=== PATIENT | male | born 1960 | race Caucasian/White ===

== ENCOUNTER 2017-11-12 03:38 | Emergency (ER) | payer OTHER ==
--- NOTE | 2017-11-12 09:47 | RAD ---
2 VIEWS CHEST: Date: 11/12/17 HISTORY: Cough. FINDINGS: PA and lateral views of the chest obtained. The lungs are well aerated. No evidence of active intrath oracic disease seen. No evidence of effusions, pneumonia, or pneumothorax seen. IMPRESSION: Normal 2 views of chest. POS: [facility]
== END 2017-11-12 06:45 | disposition home or self-care (01) ==
LOC: ERS 03:38
DX: J20.9 Acute bronchitis, unspecified (principal); E10.9 Type 1 diabetes mellitus without complications; E03.9 Hypothyroidism, unspecified; K21.9 Gastro-esophageal reflux disease without esophagitis; E78.5 Hyperlipidemia, unspecified; Z79.82 Long term (current) use of aspirin; Z79.899 Other long term (current) drug therapy
CPT/HCPCS: 71020; J7620

== ENCOUNTER 2018-08-03 11:52 | Outpatient (CLI) | payer OTHER | END 2018-08-03 11:53 | disposition home or self-care (01) | LOC: BICMRI 11:52 | PROVIDERS: ATTEND Orthopaedic Surgery | DX: M54.2 Cervicalgia (principal); M47.892 Other spondylosis, cervical region; M48.02 Spinal stenosis, cervical region | CPT/HCPCS: 72141 ==

== ENCOUNTER 2018-12-07 10:58 | Outpatient (CLI) | payer OTHER ==
--- NOTE | 2018-12-07 13:21 | CT ---
CT CERVICAL SPINE WITHOUT CONTRAST: HISTORY: Cervical spondylosis with myelopathy. COMPARISON: None. CORRELATION: MRI cervical spine from 08/03/2018. TECHNIQUE: CT cervical spine is performed without contrast administration. Reformatted images are submitted for interpretation. FINDINGS: No craniocervical dissociation. The lateral masses of C1 and C2, as well as the facets, have appropr iate articulation. Intact odontoid process. Cervical spine vertebral body height is maintained. Th ere is no fracture. There is lack of complete segmentation of C2 on C3. Limited evaluation of the contents of the central spinal canal and neural foramina due to technique. C2-C3: No significant central canal stenosis or neural foraminal narrowing. C3-C4: There appears to be calcification in the posterior aspect of the disk. There is a broad-base d disk osteophyte complex with resultant moderate central canal stenosis. Moderate right foraminal n arrowing due to uncovertebral hypertrophy and right facet hypertrophy. The left neural foramina is p atent. C4-C5: There is calcification at the posterior aspect of the disk. There is a broad-based disk oste ophyte complex with mild to moderate central canal stenosis. There is severe right and moderate left foraminal narrowing due to uncovertebral hypertrophy. C5-C6: There is a broad-based disk bulge that results in at least mild central canal stenosis. Mode rate right and moderate to severe left foraminal narrowing due to uncovertebral hypertrophy and, to a lesser extension, right facet hypertrophy. C6-C7: There appears to be calcification along the posterior margin of the disk. There is a broad-b ased disk bulge with at least mild central canal stenosis. Mild right foraminal narrowing due to unc overtebral hypertrophy. The left neural foramen is patent. C7-T1: There is no high-grade central canal stenosis or high-grade foraminal narrowing. IMPRESSION: Degenerative changes of the cervical spine, as described above. Please refer to recent MRI for rj r evaluation, in terms of the degree of central canal stenosis and foraminal narrowing. POS: [facility]
== END 2018-12-07 10:59 | disposition home or self-care (01) ==
LOC: BICCT 10:58
PROVIDERS: ATTEND Surgery
DX: M47.12 Other spondylosis with myelopathy, cervical region (principal)
CPT/HCPCS: 72125

== ENCOUNTER 2018-12-14 05:31 | Outpatient (CLI) | payer OTHER ==
[2018-12-14 14:23] LABS: Hemoglobin 15.2 g/dL (14.0-18.0); Mean Corpuscular Hemoglobin 31.6 pg (27.0-31.0); Mean Corpuscular Volume 95.7 fL (78.0-98.0); Mean Platelet Volume 8.3 fL (7.4-10.4); Platelet Count 226 thou/uL (130-400); RBC Distribution Width 11.8 % (11.5-14.5); Red Blood Cell (RBC) Count 4.82 mill/uL (4.70-6.10); White Blood Cell (WBC) Count 5.6 thou/uL (4.8-10.8)
[2018-12-14 14:29] LABS: INR-International Normal Ratio 1.1; PTT 28.2 SEC (22.9-36.1); Prothrombin Time 14.4 SEC (12.0-14.7)
[2018-12-14 14:52] LABS: Anion Gap 12 mmol/L (10-20); BUN (Urea Nitrogen) 22 mg/dL (8.4-25.7); Calc. Creatinine Clearance 0 mL/min (70-130); Calcium 9.5 mg/dL (7.8-10.44); Carbon Dioxide 25 mmol/L (22-29); Chloride 105 mmol/L (98-107); Estimated GFR-MDRD 62; Glucose 120 mg/dL (70-105); Sodium 138 mmol/L (136-145)
== END 2018-12-14 05:32 | disposition home or self-care (01) ==
LOC: LABBT 05:31
PROVIDERS: ATTEND Surgery
DX: Z01.818 Encounter for other preprocedural examination (principal); M47.12 Other spondylosis with myelopathy, cervical region; M47.22 Other spondylosis with radiculopathy, cervical region
CPT/HCPCS: 80048; 85027; 85610; 85730; 93005; 93010

== ENCOUNTER 2019-01-10 06:04 | Inpatient (IN) | payer OTHER ==
[2019-01-10] MEDS ORDERED: Fentanyl 250 MCG/5 ML VIAL ONE (06:25)
[2019-01-10] MEDS ORDERED: Sodium Chloride 0.9% 20 ML ONE (06:31)
[2019-01-10] MEDS ORDERED: Bacitracin Zinc Ointment 30 gm TUBE ONE (06:31)
[2019-01-10] MEDS ORDERED: Thrombin 5000 UNITS/5 ML VIAL ONE (06:31)
[2019-01-10] MEDS ORDERED: Midazolam HCl 2 mg/2 ml Vial ONE (07:14)
[2019-01-10] MEDS ORDERED: Insulin Regular 300 UNITS/3 ML VIAL ONE (07:24)
[2019-01-10] MEDS ORDERED: PHENYLEPHRINE-NS 100 MCG/ML 10 ML SYRINGE ONE ×3 (09:48→16:33)
[2019-01-10] MEDS ORDERED: Vecuronium 10 MG VIAL ONE ×2 (11:43→16:33)
[2019-01-10] MEDS ORDERED: Phenylephrine HCL 10 MG/ML VIAL ONE (11:57)
[2019-01-10] MEDS ORDERED: Mag-Al 1200 mg/1200 mg/30 ML UDCUP PO PRN (14:13)
[2019-01-10] MEDS ORDERED: Acetaminophen/Codeine 30-300mg Tablet PO PRN (14:13)
[2019-01-10] MEDS ORDERED: Fleet Enema 133 ML BOT PR PRN (14:13)
[2019-01-10] MEDS ORDERED: Milk Of Magnesia 30 ML UDCUP PO PRN (14:13)
[2019-01-10] MEDS ORDERED: Bisacodyl 10 MG SUPP PR PRN (14:13)
[2019-01-10] MEDS ORDERED: Sodium Chloride 0.9% 1,000 ML IV SCH (14:15)
[2019-01-10] MEDS ORDERED: INSULIN ASPART SQ SCH (14:30)
[2019-01-10] MEDS ORDERED: Fentanyl 100 MCG/2 ML VIAL ONE ×3 (14:43→16:08)
[2019-01-10] MEDS ORDERED: Ondansetron HCl/PF 4 MG/2 ML Vial IVP PRN (15:43)
[2019-01-10] MEDS ORDERED: Promethazine HCl 25 MG/ML VIAL SLOW IVP PRN (15:43)
[2019-01-10] MEDS ORDERED: Promethazine HCl 25 MG/ML VIAL IM PRN (15:43)
[2019-01-10] MEDS ORDERED: PROPOFOL 200 MG/20 ML VIAL ONE (16:33)
[2019-01-10] MEDS ORDERED: Lidocaine 1% PF 5 ML VIAL ONE (16:33)
[2019-01-10] MEDS ORDERED: Rocuronium Bromide 10 MG/ML (10ML VIAL) ONE (16:33)
[2019-01-10] MEDS ORDERED: Glycopyrrolate 0.2 MG/ML 5 ML SYRINGE ONE (16:33)
[2019-01-10] MEDS ORDERED: ePHEDrine 50 MG/ML VIAL ONE (16:33)
[2019-01-10] MEDS ORDERED: Ondansetron PF 4 MG/2 ML Vial ONE (16:33)
[2019-01-10] MEDS: Promethazine HCl 25 MG/ML VIAL IM PRN ×2 (16:41→22:21)
[2019-01-10] MEDS: Morphine 4 MG/ML VIAL SLOW IVP PRN ×4 (17:43→23:10)
[2019-01-10] MEDS: tiZANidine HCl 4 MG TAB PO PRN (17:51)
[2019-01-10] MEDS: CEFAZOLIN 2 GM in Premix Bag 1 BAG IVPB SCH (17:51)
[2019-01-10] MEDS: HYDROcodone/Acetaminophen 7.5/325 mg Tablet PO PRN ×2 (18:03→23:11)
[2019-01-10] MEDS ORDERED: Dextrose 5% in Water 1,000 ML IV PRN (19:30)
[2019-01-10] MEDS ORDERED: Dextrose 50% Abboject 50 ML SYRINGE IVP PRN (19:30)
[2019-01-10 20:10] VITALS: BMI 30.1
[2019-01-10] MEDS: Atorvastatin Calcium 40 MG TAB PO SCH (20:34)
[2019-01-11] MEDS: tiZANidine HCl 4 MG TAB PO PRN (00:57)
[2019-01-11] MEDS: Morphine 4 MG/ML VIAL SLOW IVP PRN ×3 (00:57→21:38)
[2019-01-11] MEDS: CEFAZOLIN 2 GM in Premix Bag 1 BAG IVPB SCH ×3 (00:58→16:53)
[2019-01-11] MEDS: Sodium Chloride 0.9% 1,000 ML IV SCH ×2 (02:13→09:25)
[2019-01-11 02:30] LABS: #Lymphocytes 0.7 thou/uL (1.20-3.40); #Monocytes 1.3 thou/uL (0.11-0.59); #Neutrophils 12.6 thou/uL (1.40-6.50); %Basophils 0.1 % (0.0-1.0); %Eosinophils 0.1 % (0.0-10.0); %Lymphocytes 4.7 % (21.0-51.0); %Monocytes 8.6 % (0.0-10.0); %Neutrophils 86.6 % (42.0-75.0); Hemoglobin 13.8 g/dL (14.0-18.0); Mean Corpuscular HGB CONC 31.8 g/dL (32.0-36.0); Mean Corpuscular Hemoglobin 31.4 pg (27.0-31.0); Mean Corpuscular Volume 98.6 fL (78.0-98.0); Mean Platelet Volume 8.5 fL (7.4-10.4); Platelet Count 237 thou/uL (130-400); RBC Distribution Width 11.9 % (11.5-14.5); Red Blood Cell (RBC) Count 4.39 mill/uL (4.70-6.10); White Blood Cell (WBC) Count 14.6 thou/uL (4.8-10.8)
[2019-01-11] MEDS: Sodium Chloride 0.9% 500 ML IV SCH ×2 (02:45→05:14)
[2019-01-11 02:47] LABS: Anion Gap 21 mmol/L (10-20); BUN (Urea Nitrogen) 25 mg/dL (8.4-25.7); Calc. Creatinine Clearance 67 mL/min (70-130); Carbon Dioxide 19 mmol/L (22-29); Chloride 101 mmol/L (98-107); Estimated GFR-MDRD 45; Glucose 383 mg/dL (70-105); Potassium 4.9 mmol/L (3.5-5.1); Sodium 136 mmol/L (136-145)
[2019-01-11 02:53] LABS: Troponin I Less than 0.010 ng/mL (< 0.028)
[2019-01-11] MEDS: Ondansetron PF 4 MG/2 ML Vial IVP PRN (02:55)
--- NOTE | 2019-01-11 03:05 | HP ---
PRIMARY CARE PHYSICIAN: Dr. Michele Cuadra. CHIEF COMPLAINT: Tachycardia. HISTORY OF PRESENT ILLNESS: Mr. Fernando Cruz is a 58-year-old male with past medical history of type 1 diabetes, hypertension, hypothyroidism, and neck pain who was admitted by Neurosurgery after elective surgery for cervical stenosis. The patient was admitted overnight after the surgery. The hospitalist team was consulted for tachycardia. The patient's heart rate was noted to be in 120s to 130s. The patient's was present at bedside. The patient reports that he never had issues with heart problem or had issues with his elevated heart rate. The patient and deny any history of cardiac problem. The patient reports compliance with his medication. The patient is a type 1 diabetic and takes insulin. The patient reports that his pain is moderately controlled. The patient is on liquid diet. Per , the patient has only been able to drink a little bit of fluid. The patient has been frequently to urinating any and he feels that if he is able to get up, then he can urinate better. The patient also complained of nausea. The patient denies any chest pain or abdominal pain at this point. The patient is on IV fluids per Neurosurgery. Pain control is per Neurosurgery. PAST MEDICAL HISTORY: Hypertension and diabetes type 1. PAST SURGICAL HISTORY: Shoulder surgery and testicle torsion correction. FAMILY HISTORY: Mother had CVA and heart problem. SOCIAL HISTORY: Denies any smoking, alcohol, or illicit drugs. MEDICATIONS: Ramipril, levothyroxine, atorvastatin. REVIEW OF SYSTEMS: A 10-point review of system negative other than mentioned in the HPI. PHYSICAL EXAMINATION: VITAL SIGNS: Temperature 98.1, pulse 116, respiration rate 22, blood pressure 101/60, O2 saturation 96% on 2 L nasal cannula. HEENT: Head is atraumatic head. Ears and nose, no bleeding or discharge is noted. Mouth, no exudate noted. NECK: The patient has a cervical collar and has a drain that is draining clear red liquid. Unable to assess lymphadenopathy. CARDIOVASCULAR: Regular rhythm, tachycardic. No murmur, rubs, or gallops. RESPIRATORY: Clear bilateral. No wheezes appreciated. ABDOMEN: Soft and nontender. Bowel sounds positive. EXTREMITIES: Lower extremities; no edema noted. NEUROLOGICAL: The patient is alert. SKIN: No rashes noted. LABORATORY DATA: WBC 14. hgb 13.8, PLT 237, D-dimer 6, trop neg, BNP WNL Na 136, K 4.9, Cl 101, CO2 19, BUN 21, Cr 1.59 BG 383 Chest x-ray ordered, read pending. ASSESSMENT: 1. Tachycardia. 2. Cervical myelopathy. 3. Cervical stenosis. 4. Hypertension. 5. Hypothyroidism. 6. Diabetes type 1 with hyperglycemia 7. LUIS: likely due to ATN unclear if present on admission. Cr 1.59, Baseline ~ 1.19 8. Leukoyctosis: likely from surgery. Does not appear to be infectious 9. Positive D- dimer PLAN: 1. The patient's tachycardia could be due to dehydration versus insufficient pain control versus combination. Pt does have LUIS. The patient blood pressure is low normal at this point. The patient's IV fluid rate was increased to 125 mL/hour that seemed to have improved heart rates slightly from 130 down to 120s. We will give bolus of normal saline 500 mL over 2 hours. EKG only significant for sinus tachycardia, but no ST-segment elevation noted. Repeat labs during the day. Avoid NSAIDS and nephrotoxic agents. D-dimer positive. VQ Scan order. Will avoid contrast. Hold off abx for now as pt does not have fever. f/u CXR 2. Pain control per Neurosurgery. Need to be cautious as pt's BP in low normal 3. Continue insulin pump. 4. Hypertension. Continue home medications. We will recommend holding home blood pressure medication if blood pressure is less than 120/70. 5. Hypothyroidism. Continue levothyroxine. 6. The patient's medical power of immigration attorney would be his . 7. The patient is a full code. 8. DVT prophylaxis per Neurosurgery. 9. No known allergies to drugs. Thank you for the consult. We will continue to follow along with you. Job ID: [id number] MTDD
[2019-01-11] MEDS: Levothyroxine Sodium 25 MCG TAB PO SCH (05:36)
[2019-01-11] MEDS ORDERED: Levothyroxine Sodium 112 MCG TAB PO SCH (06:00)
[2019-01-11] MEDS ORDERED: HumaLOG 300 UNITS/3 ML VIAL SC PRN ×2 (08:27)
[2019-01-11] MEDS ORDERED: Dextrose 50% Abboject 50 ML SYRINGE SLOW IVP PRN (08:27)
[2019-01-11] MEDS: Ramipril 5 MG CAP PO SCH ×2 (08:28→09:24)
--- NOTE | 2019-01-11 08:45 | RAD ---
CHEST 1 VIEW: HISTORY: Tachycardia. FINDINGS: No comparison. Cardiac silhouette and pulmonary vasculature are unremarkable. Linear markings at th e retrocardiac level extend to the left posterior lung base and are incompletely evaluated on the fro ntal view. Shallow inspiration accentuates pulmonary markings. No evidence of pneumothorax. IMPRESSION: Possible left posterior basilar infiltrate. Please consider upright PA and lateral views of the ches t when patient can undergo that exam. POS: [facility]
[2019-01-11] MEDS: Ketorolac Tromethamine 30 MG/ML VIAL IVP PRN ×2 (09:54→16:51)
[2019-01-11 10:08] LABS: #Lymphocytes 0.9 thou/uL (1.20-3.40); #Monocytes 1.4 thou/uL (0.11-0.59); #Neutrophils 12.1 thou/uL (1.40-6.50); %Basophils 0.1 % (0.0-1.0); %Eosinophils 0.2 % (0.0-10.0); %Monocytes 9.8 % (0.0-10.0); Hemoglobin 12.5 g/dL (14.0-18.0); Mean Corpuscular HGB CONC 33.2 g/dL (32.0-36.0); Mean Corpuscular Hemoglobin 32.1 pg (27.0-31.0); Mean Corpuscular Volume 96.8 fL (78.0-98.0); Mean Platelet Volume 8.1 fL (7.4-10.4); Platelet Count 234 thou/uL (130-400); RBC Distribution Width 11.8 % (11.5-14.5); Red Blood Cell (RBC) Count 3.88 mill/uL (4.70-6.10); White Blood Cell (WBC) Count 14.4 thou/uL (4.8-10.8)
--- NOTE | 2019-01-11 10:16 | PDOC.PN ---
- Subjective Encounter Start Date: 01/11/19 Encounter Start Time: 08:15 -: old records requested/rev pt has dry cough, his neck pain is controlled, he has tachycardia, no chest pain , no dizziness, his insulin pump was on hold this morning, his blood sugar are high and he has polyuria and polydipsia, no fever - Objective Resuscitation Status - Order Detail: 01/11/19 08:26 Resuscitation Status Routine Resuscitation Status: FULL: Full Resuscitation MAR Reviewed: Yes Vital Signs & Weight: Vital Signs (12 hours) Temp Pulse Resp BP BP BP Pulse Ox 01/11/19 09:24 104/55 L 01/11/19 07:20 98.9 F 119 H 20 104/55 L 92 L 01/11/19 04:20 98.8 F 121 H 20 93/54 L 95 01/11/19 00:24 98.9 F 120 H 20 101/60 95 Weight Weight 210 lb I&O: 01/10/19 01/11/19 01/12/19 06:59 06:59 06:59 Intake Total 650 Output Total 1100 35 Balance -450 -35 Result Diagrams: 01/11/19 09:44 01/11/19 01:45 Additional Labs: Accuchecks 01/11/19 01/11/19 01/11/19 08:52 06:11 00:25 POC Glucose 377 H 365 H 297 H 01/10/19 01/10/19 01/10/19 17:31 14:36 13:18 POC Glucose 245 H 121 H 89 01/10/19 01/10/19 01/10/19 12:37 11:27 10:15 POC Glucose 108 185 H 283 H 01/10/19 01/10/19 09:28 08:40 POC Glucose 296 H 304 H Radiology Reviewed by me: Yes (chest xray normal) EKG Reviewed by me: Yes (sinus tachycardia) Phys Exam - Physical Examination Constitutional: NAD HEENT: PERRLA, moist MMs, sclera anicteric, oral pharynx no lesions Neck: no JVD, supple cervical collar+, drain in place Respiratory: no wheezing, no rales, no rhonchi Cardiovascular: RRR, no significant murmur, no rub tachycardia Gastrointestinal: soft, non-tender, no distention, positive bowel sounds Musculoskeletal: no edema, pulses present SCD+ Neurological: non-focal, normal sensation, moves all 4 limbs Lymphatic: no nodes Psychiatric: normal affect, A&O x 3 Skin: no rash, normal turgor Dx/Plan (1) Acute kidney injury Code(s): N17.9 - ACUTE KIDNEY FAILURE, UNSPECIFIED Status: Acute Comment: due to prerenal (2) Elevated d-dimer Code(s): R79.89 - OTHER SPECIFIED ABNORMAL FINDINGS OF BLOOD CHEMISTRY Status : Acute Comment: nonspecific likely due to post operative (3) Leucocytosis Code(s): D72.829 - ELEVATED WHITE BLOOD CELL COUNT, UNSPECIFIED Status: Acute Comment: due to stress response after surgery, doubt any infection (4) Sinus tachycardia Code(s): R00.0 - TACHYCARDIA, UNSPECIFIED Status: Acute Comment: due to pain , volume deplation and rule out DKA (5) Cervical myelopathy with cervical radiculopathy Code(s): M47.12 - OTHER SPONDYLOSIS WITH MYELOPATHY, CERVICAL REGION Status: Chronic (6) Cervical stenosis of spinal canal Code(s): M48.02 - SPINAL STENOSIS, CERVICAL REGION Status: Chronic (7) Diabetes type 2, controlled Code(s): E11.9 - TYPE 2 DIABETES MELLITUS WITHOUT COMPLICATIONS Status: Chronic Comment: currently not well controlled due to off insulin pump, will resume that and will necessary blood test like ketons, lactic acid, and repeat labs today (8) Dyslipidemia Code(s): E78.5 - HYPERLIPIDEMIA, UNSPECIFIED Status: Chronic (9) GERD (gastroesophageal reflux disease) Code(s): K21.9 - GASTRO-ESOPHAGEAL REFLUX DISEASE WITHOUT ESOPHAGITIS Status: Chronic (10) Hypertension Code(s): I10 - ESSENTIAL (PRIMARY) HYPERTENSION Status: Chronic Comment: will hold BP meds for SBP <120 (11) Hypothyroidism Code(s): E03.9 - HYPOTHYROIDISM, UNSPECIFIED Status: Chronic (12) Obesity (BMI 30.0-34.9) Code(s): E66.9 - OBESITY, UNSPECIFIED Status: Chronic - Plan cont current plan of care, plan discussed w/ family, PT/OT * continue IVF * resume insulin pumpl * monitor blood sugar frequently * if does not improve and evidence of DKA, will consider insulin drip * medication reviewed as below * symptomatic treatment * post operative care as per surgeon * discussed with . Review of Systems - Review of Systems Respiratory: Cough, Dry. negative: Shortness of Breath, Hemoptysis, SOB with Excertion, Pleuritic Pain, Sputum, Wheezing Cardiovascular: negative: chest pain, palpitations, orthopnea, paroxysmal nocturnal dyspnea, edema, light headedness, other Gastrointestinal: negative: Nausea, Vomiting, Abdominal Pain, Diarrhea, Constipation, Melena, Hematochezia, Other Genitourinary: negative: Dysuria, Frequency, Incontinence, Hematuria, Retention , Other Musculoskeletal: Neck Pain. negative: Shoulder Pain, Arm Pain, Back Pain, Hand Pain, Leg Pain, Foot Pain, Other - Medications/Allergies Allergies/Adverse Reactions: Allergies Allergy/AdvReac Type Severity Reaction Status Date / Time No Known Allergies Allergy Verified 12/14/18 13:03 Medications: Current Medications Acetaminophen (Tylenol) 650 mg PO Q4H PRN PRN Reason: BORDEN/Fever Or Mild Pain (1-3) Acetaminophen/Codeine Phosphate (Tylenol #3) 1 tab PO Q3H PRN PRN Reason: Mild Pain (1-3) Hydrocodone Bitart/Acetaminophen (Escanaba 7.5/325) 1 tab PO Q4H PRN PRN Reason: Moderate Pain (4-6) Last Admin: 01/10/19 23:11 Dose: 1 tab Al Hydroxide/Mg Hydroxide (Maalox) 30 ml PO Q4H PRN PRN Reason: Indigestion Atorvastatin Calcium (Lipitor) 80 mg PO HS [facility] Last Admin: 01/10/19 20:34 Dose: 80 mg Bisacodyl (Dulcolax) 10 mg CO Q12H PRN PRN Reason: Constipation Dextrose/Water (Dextrose 50%) 25 gm SLOW IVP PRN PRN PRN Reason: Hypoglycemia Glucagon (Glucagon) 1 mg IM PRN PRN PRN Reason: HYPOGLYCEMIA PROTOCOL Cefazolin Sodium/Dextrose 2 gm (/ Device) 50 mls @ 100 mls/hr IVPB 0800,1600, 2359 [facility] Last Admin: 01/11/19 08:24 Dose: 50 mls Dextrose/Water (D5w) 1,000 mls @ 0 mls/hr IV INF PRN PRN Reason: HYPOGLYCEMIA PROTOCOL Sodium Chloride (Normal Saline 0.9%) 1,000 mls @ 125 mls/hr IV .Q8H [facility] Last Admin: 01/11/19 09:25 Dose: Not Given Insulin Human Lispro (Humalog) 0 units SC .MODERATE SLIDING SC PRN PRN Reason: Moderate Correctional Scale Insulin Human Lispro (Humalog) 0 units SC .BEDTIME SLIDING SC PRN PRN Reason: Bedtime Correctional Scale Ketorolac Tromethamine (Toradol) 30 mg IVP Q6H PRN PRN Reason: Pain Last Admin: 01/11/19 09:54 Dose: 30 mg Levothyroxine Sodium (Synthroid) 25 mcg PO 0600 [facility] Last Admin: 01/11/19 05:36 Dose: 25 mcg Magnesium Hydroxide (Milk Of Magnesium) 30 ml PO Q12H PRN PRN Reason: Constipation Last Admin: 01/11/19 09:57 Dose: 30 ml Morphine Sulfate (Morphine) 4 mg SLOW IVP Q1H PRN PRN Reason: Severe Pain (7-10) Last Admin: 01/11/19 02:55 Dose: 4 mg Ondansetron HCl (Zofran) 4 mg IVP Q6H PRN PRN Reason: Nausea/Vomiting Last Admin: 01/11/19 02:55 Dose: 4 mg Pantoprazole Sodium (Protonix) 40 mg PO DAILY [facility] Last Admin: 01/11/19 08:25 Dose: 40 mg Promethazine HCl (Phenergan) 12.5 mg IM Q4H PRN PRN Reason: Nausea/Vomiting Last Admin: 01/10/19 22:21 Dose: 12.5 mg Ramipril (Altace) 5 mg PO DAILY [facility] Last Admin: 01/11/19 09:24 Dose: Not Given Sodium Biphosphate/Sodium Phosphate (Fleet Enema) 133 ml CO ONE PRN PRN Reason: Constipation Stop: 01/11/19 14:14 Sodium Chloride (Flush - Normal Saline) 10 ml IVF PRN PRN PRN Reason: Saline Flush Tizanidine HCl (Zanaflex) 4 mg PO Q6H PRN PRN Reason: Muscle Spasm Last Admin: 01/11/19 00:57 Dose: 4 mg Tramadol HCl (Ultram) 50 mg PO Q6H PRN PRN Reason: Mild Pain (1-3)
--- NOTE | 2019-01-11 10:18 | PRG ---
DATE OF SERVICE: 01/11/2019 Mr. Cruz is postoperative day 1 from anterior C3-C7 diskectomy and fusion and posterior C3-C7 laminectomy and screw-tyler fixation. Obviously, pain control has been an issue overnight and we have worked in this regard and have consulted Pain Management this morning to assist. He has had blood pressure in the 90/70 range at times. Again, I suspect related to narcotic sensitivity. We will add Toradol to his regimen as well. He has also had urinary retention and difficulty fully emptying his bladder and he would like to try and mobilize this morning to try and stand to urinate. Obviously, I think this is related to narcotics, but also related to prostatic hypertrophy. He does have type 1 diabetes with an insulin pump and has had sugars in the 340 range this morning. Obviously, one concern I would have is diabetic ketoacidosis and we will ask our medical colleagues to assist in this regard. A V/Q scan has been ordered and I think this would be of low yield and frankly would be a study that would result in increased pain. Obviously, we can always pursue evaluation for pulmonary embolism, but I do not think it is necessary at this point. We will consult physical therapy and inpatient rehab and finally should he have more difficulty with voiding, we will work towards placement of indwelling catheter. Job ID: [id number]
--- NOTE | 2019-01-11 10:22 | OP ---
DATE OF PROCEDURE: 01/10/2019 OPERATING ROOM: OR 12. WOUND CLASSIFICATION: Type 1 wound. RN TELEHEALTH: Khadar Mccabe PA-C. PRE-PROCEDURE DIAGNOSIS: Multilevel cervical stenosis with myelopathy and radiculopathy. POSTPROCEDURE DIAGNOSIS: Multilevel cervical stenosis with myelopathy and radiculopathy. PROCEDURES PERFORMED: 1. Anterior C3-C4, C4-C5, C5-C6, C6-C7 diskectomies with decompression of spinal cord nerve roots and temple of normal anatomic alignment. 2. Arthrodesis C3-C4, C4-C5, C5-C6, C6-C7 with spacer packed with graft for arthrodesis. 3. Anterior cervical plate and screw fixation, C3, C4, C5, C6, and C7. 4. Use of operative microscope for microdissection. 5. Anterior fusion C3, C4, C5, C6, and C7. 6. Cervical laminectomy, C3-C4, C4-C5, C5-C6, C6-C7. 7. Posterior screw tyler fixation, C3, C4, C5, C6, and C7. 8. Posterior lateral arthrodesis, C3, C4, C5, C6, and C7 for fusion with use of local bone autograft obtained from the same incision allograft. DESCRIPTION OF PROCEDURE: After informed consent was obtained from the patient, the patient was brought to the OR. Proper patient, pause, and identification were carried out. He was placed under excellent endotracheal anesthesia and positioned supine on the OR table and cervical spine in neutral position. Right anterior oblique harris was drawn out and level of approach from C3-C7. This region was sterilely cleansed, prepared, and draped. Proper patient, pause, and identification were carried out. The wound was then opened with a combination of sharp, monopolar, and blunt dissection with C3-C7 segments were exposed after a procession lateral to the larynx, pharynx, and tracheoesophageal bundle and medial to the right carotid sheath. We then turned our attention to exposure of the anterior C3, C4, C5, C6, and C7 segments and disk spaces. Retractors were placed. Distraction then occurred and the microscope was brought and distraction at C3-C4 was performed and diskectomy at C3-C4 was performed. We then prepared the endplates of interbody spacer of appropriate dimension was packed with graft and placed for arthrodesis. We then distracted C4-C5, C5-C6, and C6-C7 and repeated the process at each of those segments with diskectomies and at each of those segments, preparation of the endplates, and placement of interbody spacers at the C4-C5, C5-C6, and C6-C7 segments. We were satisfied with our lordotic alignment at that point. Microscope was removed and anterior cervical plate and screw fixation from C3-C7 then occurred with final tightening. We then copiously irrigated the wound and the wound was closed in anatomic layers over drain on maximizing hemostasis. The patient was then placed in the [facility] and positioned prone again in cervical spine in neutral position. The C3-C7 posterior incision was drawn out and this area was sterilely cleansed, prepared, and draped. Proper patient, pause, and identification were carried out. The wound was then opened with a combination of sharp, monopolar, and blunt dissection, and C3-C7 dorsal spines and lamina were exposed. We then placed screws in lateral masses at C3, C4, C5, C6, C7 bilaterally. Rods were placed and final tightening occurred. We had excellent lordotic alignment and had decompressive laminectomy from C3-C7 was also performed. We maximized hemostasis throughout. The wound was copiously irrigated and closed in anatomic layers following decortication of the posterior lateral mass and placement of autograft obtained from the same incision of allograft for arthrodesis. Again, we were satisfied with our construct and physiologic alignment with both gross and fluoroscopic evaluation and the patient then emerged from anesthesia following closure of the posterior wall. Job ID: [id number]
[2019-01-11 10:27] LABS: Lactic Acid 2.2 mmol/L (0.5-2.2)
[2019-01-11 10:29] LABS: Anion Gap 18 mmol/L (10-20); BUN (Urea Nitrogen) 35 mg/dL (8.4-25.7); Calc. Creatinine Clearance 58 mL/min (70-130); Calcium 8.4 mg/dL (7.8-10.44); Carbon Dioxide 19 mmol/L (22-29); Chloride 100 mmol/L (98-107); Estimated GFR-MDRD 38; Glucose 420 mg/dL (70-105); Magnesium 1.6 mg/dL (1.6-2.6); Phosphorus 4.1 mg/dL (2.3-4.7); Potassium 4.5 mmol/L (3.5-5.1); Sodium 132 mmol/L (136-145)
[2019-01-11] MEDS ORDERED: HUMULIN R 100 UNITS in Sodium Chloride 0.9% 100 ML IVPB SCH (11:32)
[2019-01-11] MEDS ORDERED: Dextrose 5 %-0.45 % NaCl 1,000 ML IV PRN (11:32)
[2019-01-11] MEDS ORDERED: Sodium Chloride 0.9% 1,000 ML IV PRN ×4 (11:32)
[2019-01-11] MEDS ORDERED: NS 0.9% w/ 20 MEQ KCL 1,000 ML IV PRN ×2 (11:32)
[2019-01-11] MEDS ORDERED: CCU Electrolyte Replacement 1 EACH IVPB ONE (11:32)
--- NOTE | 2019-01-11 11:45 | CON ---
DATE OF CONSULTATION: 01/11/2019 REASON FOR CONSULTATION: Diabetic ketoacidosis. HISTORY OF PRESENT ILLNESS: The patient is a 58-year-old male, who was admitted to the hospital yesterday for elective cervical neck operation for stenosis. Today, he has extremely elevated blood sugars and has a positive beta hydroxybutyrate. He is having polyuria and polydipsia at this time. PAST MEDICAL HISTORY: 1. Type 1 diabetes mellitus for many years. 2. Hypertension. 3. Hypothyroidism. PAST SURGICAL HISTORY: 1. Shoulder surgery. 2. Testicular torsion correction. FAMILY MEDICAL HISTORY: Remarkable for stroke and coronary artery disease. SOCIAL HISTORY: Nonsmoker. Does not consume alcohol. 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 MEDICATIONS: Prior to admission; 1. Ramipril. 2. Levothyroxine. 3. Atorvastatin. 4. Insulin pump. REVIEW OF SYSTEMS: Remarkable for polydipsia, polyphagia, and polyuria. PHYSICAL EXAMINATION: VITAL SIGNS: Temperature 98.9, pulse 119, blood pressure 104/55, and O2 saturation 90%. GENERAL: The patient is currently lying in bed, somewhat tachypneic. HEENT: Pupils are reactive. Sclerae anicteric. Oropharynx clear. NECK: Neck brace in place. LUNGS: Clear anteriorly and posteriorly. CARDIOVASCULAR: S1 and S2 slightly tachycardic. ABDOMEN: Soft, nontender, and nondistended. EXTREMITIES: No clubbing, cyanosis, or edema. LABORATORY DATA: Beta hydroxybutyrate is 5.1. White blood cell count 14.4, hematocrit 37.5, and platelet count 234. Sodium 132, potassium 4.5, chloride 100, CO2 of 19, BUN 35, creatinine 1.8, glucose 420, and his anion gap is 18. His D-dimer 6.96. ASSESSMENT: Diabetic ketoacidosis from being off his insulin pump. PLAN: 1. Move to [facility] to give fluids, start IV insulin, and to get his blood sugars are under better control. This is particularly important in the perioperative period. 2. Discussed with the patient and his at bedside. Job ID: [id number]
[2019-01-11] MEDS ORDERED: Magnesium 2 GM/NS 0.9% 100 ML 2 GM in Premix Bag 1 BAG IVPB PRN (11:55)
[2019-01-11] MEDS ORDERED: Potassium Phosphate 15 MMOL in Sodium Chloride 0.9% 250 ML 250 ML IV PRN (11:55)
[2019-01-11] MEDS ORDERED: Potassium Phosphate 9 MMOL in Sodium Chloride 0.9% 100 ML IVPB PRN (11:55)
[2019-01-11] MEDS ORDERED: Potassium Chloride 20 MEQ TAB PO PRN (11:55)
[2019-01-11] MEDS ORDERED: Potassium Chloride 40 MEQ in Sodium Chloride 0.9% 250 ML 250 ML IVPB PRN (11:55)
[2019-01-11] MEDS ORDERED: CCU ELECTROLYTE REPLACEMENT PROTOCOL FS PRN (11:55)
[2019-01-11] MEDS ORDERED: Magnesium Oxide 400 MG TAB PO PRN ×2 (11:55)
[2019-01-11] MEDS ORDERED: Potassium Chloride 40 MEQ in Premix Bag 1 BAG IVPB PRN (11:55)
[2019-01-11] MEDS ORDERED: Potassium Phosphate 12 MMOL in Sodium Chloride 0.9% 250 ML 250 ML IV PRN (11:55)
[2019-01-11 15:04] LABS: Anion Gap 14 mmol/L (10-20); BUN (Urea Nitrogen) 39 mg/dL (8.4-25.7); Calc. Creatinine Clearance 61 mL/min (70-130); Calcium 8.4 mg/dL (7.8-10.44); Carbon Dioxide 22 mmol/L (22-29); Chloride 102 mmol/L (98-107); Estimated GFR-MDRD 40; Glucose 312 mg/dL (70-105); Sodium 134 mmol/L (136-145)
[2019-01-11] MEDS ORDERED: Lidocaine 1% (PF) 30 ML VIAL ONE (15:19)
--- NOTE | 2019-01-11 17:00 | EKG ---
Test Reason : TACHYCARDIA Blood Pressure : / mmHG Vent. Rate : 122 BPM Atrial Rate : 122 BPM P-R Int : 122 ms QRS Dur : 084 ms QT Int : 326 ms P-R-T Axes : 049 041 042 degrees QTc Int : 464 ms Sinus tachycardia Nonspecific ST abnormality Abnormal ECG When compared with ECG of 14-DEC-2018 13:46, (Unconfirmed) Vent. rate has increased BY 52 BPM Confirmed by VALORIE BERTRAND ([id number]) on 01/11/2019 5:00:08 PM Referred By: Jorge RODRIGUES Confirmed By:VALORIE BERTRAND
[2019-01-11 19:48] LABS: Anion Gap 10 mmol/L (10-20); BUN (Urea Nitrogen) 34 mg/dL (8.4-25.7); Calc. Creatinine Clearance 81 mL/min (70-130); Calcium 8.2 mg/dL (7.8-10.44); Carbon Dioxide 25 mmol/L (22-29); Chloride 107 mmol/L (98-107); Estimated GFR-MDRD 56; Glucose 107 mg/dL (70-105); Potassium 4.5 mmol/L (3.5-5.1); Sodium 137 mmol/L (136-145)
[2019-01-11] MEDS: Bacitracin Zinc 1 Packet TOP SCH (20:40)
[2019-01-11] MEDS: Atorvastatin Calcium 40 MG TAB PO SCH (20:42)
[2019-01-11] MEDS: D5 1/2 NS w/20 mEq KCL 1,000 ML IV PRN (21:35)
--- NOTE | 2019-01-11 22:07 | CON ---
DATE OF CONSULTATION: 01/11/2019 CONSULTING PHYSICIAN: Aria Blue MD CONSULTED PHYSICIAN: Atilio Bartholomew MD REASON FOR CONSULTATION: Urinary retention and inability to pass catheter. HISTORY OF PRESENT ILLNESS: Mr. Cruz is a 58-year-old white male, who was admitted to the hospital for elective cervical neck surgery for spinal stenosis. Postoperatively, he has had a very high blood sugars and has had some problems in maintaining his blood sugars. On the telemetry floor in the ICU being monitored, but it was noted that he was having difficulty urinating. It is not clear whether or not he had a catheter at the time of his surgery, but postoperatively, he did not have a catheter and was having difficulty voiding. He was only able to void in 50 mL increments while lying supine. When they stood him up, he was able to void approximately 300 mL, but had the postvoid residual of almost 450 to 500 mL. He is also being aggressively hydrated due to a DKA protocol due to significantly elevated blood sugars due to his incomplete emptying and his high risk for urinary retention and urinary tract infections. Given his high blood sugars, we have elected to go ahead and treat him. He reports that at home, he normally does not have a significant amount of difficulty urinating. However, he does have a deviated urinary stream. The nursing staff stated they attempted to place a catheter, but his opening was too small and they were not able to pass a 16 or 14-Turkish catheter. Therefore, I have been called for further assistance. He has no history of urinary tract infections or hematuria or previous urologic surgeries. HOME MEDICATIONS: 1. Ramipril. 2. Levothyroxine. 3. Atorvastatin. 4. Insulin pump. ALLERGIES: NONE. PAST MEDICAL HISTORY: 1. Type 1 diabetes. 2. Hypertension. 3. Hypothyroidism. 4. Cervical neck stenosis. PAST SURGICAL HISTORY: 1. Shoulder surgery. 2. Correction of testicular torsion many years ago. 3. Recent cervical spine surgery. FAMILY HISTORY: Significant for stroke and coronary artery disease. SOCIAL HISTORY: The patient does not smoke. He does not drink alcohol. He denies illicit drug use. He is a retired principal at a school. REVIEW OF SYSTEMS: A 12-point review of systems was reviewed and unremarkable other than the patient having excessive thirst and strong need to urinate without being able to do so. He is also complaining of some neck pain postoperatively. Remainder of review of systems was reviewed and otherwise negative. PHYSICAL EXAMINATION: VITAL SIGNS: Temperature 98.4, pulse 98, respirations 20, blood pressure 100/58, and saturations 92% on room air. GENERAL: No apparent distress, communicating, and alert. CARDIOVASCULAR: Regular rate and rhythm. Normal S1 and S2. Symmetric pulses. HEENT: Normocephalic, atraumatic. Sclerae are nonicteric. Pupils are symmetric and round. Trachea midline. Moist mucous membranes. CHEST: No increased work of breathing. Symmetric expansion. LUNGS: Clear anteriorly. ABDOMEN: Soft, nontender, and nondistended. Positive bowel sounds. No organomegaly. Mild discomfort in the suprapubic area. GENITOURINARY: The patient is circumcised. His penis is without lesions or irritation. No evidence of infection. Testicles are bilaterally descended. No scrotal edema or hydroceles or hernias noted. The meatus is significantly narrowed probably about the size of 6 to 8 -Turkish catheter. EXTREMITIES: No clubbing, cyanosis, or edema. MUSCULOSKELETAL: No joint deformities or joint erythema noted. The patient has full range of motion of his upper and lower extremities. NEUROLOGIC: Cranial nerves II through XII are grossly intact. There are no obvious focal motor or sensory deficits identified, although a full neuro exam was not performed. PSYCHIATRIC: Alert and oriented x3. Appropriate mood and affect. LABORATORY EVALUATION: The full set of labs in the [facility] system, which I have reviewed. Of note, the patient's white count is 14.4 with hemoglobin of 12.5. Creatinine is currently 1.73 with a blood sugar of 307. DESCRIPTION OF PROCEDURE: After discussing with the patient about a meatoplasty with risks and benefits, the patient had agreed to proceed forward with a meatoplasty. He was left in the supine position and the procedure was done at bedside. He was prepped and draped in the usual sterile fashion. Anesthesia was achieved with 1% lidocaine plain injected just below the urethral meatus. Once adequate numbing had taken place, hemostats were used to crush the tissues ventrally from the meatus. The iris scissor was used to divide the skin along the crushed line to widely open the meatus. Sutures were then placed using a 4-0 chromic interrupted fashion at 6 o'clock at the lateral aspects and intervening locations in the V-type cut that was made below the meatus. Upon completion, the meatus was widely patent. Bacitracin ointment was applied. The patient did not feel anything other than the original needlestick and tolerated the procedure well. COMPLICATIONS: None. ESTIMATED BLOOD LOSS: Minimal. RETAINED TUBES AND DRAINS: A 16-Turkish Acosta catheter was placed by me with ease into the bladder with return of approximately 500 to 600 mL of clear yellow urine. SPECIMENS: None. ASSESSMENT AND PLAN: A 58-year-old white male with type 1 diabetes, status post meatoplasty at bedside with urinary retention, which is likely secondary to recent cervical spine surgery and high blood sugars with likely some neuropathic effects. I do expect him to regain his ability to urinate once his blood sugars are better. He has recovered further from his surgery and anesthesia as well as decreasing his narcotic pain requirements. At this point, he should be able to void on his own. We will keep the catheter in for right now and he needs bacitracin applied to the tip of his penis twice a day. We will keep the bacitracin going for 7 days, but his catheter can be removed when he is ready for discharge. We will do a void trial and if he is able to void to completion. At that time, we will keep the catheter out. If he is not able to void, the catheter can be replaced. He can be discharged with a catheter and follow up with me on an outpatient basis for repeat void trial. SUMMARY OF RECOMMENDATIONS: 1. Acosta catheter until discharge. We will do void trial prior to discharge. 2. Bacitracin ointment to the tip of penis twice a day. 3. The patient will follow up with me regardless for a postop check for void trial if necessary. Job ID: [id number]
[2019-01-11 22:18] LABS: Anion Gap 11 mmol/L (10-20); BUN (Urea Nitrogen) 33 mg/dL (8.4-25.7); Calc. Creatinine Clearance 86 mL/min (70-130); Carbon Dioxide 23 mmol/L (22-29); Chloride 108 mmol/L (98-107); Estimated GFR-MDRD 60; Glucose 128 mg/dL (70-105); Potassium 4.5 mmol/L (3.5-5.1); Sodium 137 mmol/L (136-145)
[2019-01-12] MEDS: CEFAZOLIN 2 GM in Premix Bag 1 BAG IVPB SCH ×3 (00:10→16:41)
[2019-01-12] MEDS: D5 1/2 NS w/20 mEq KCL 1,000 ML IV PRN ×3 (01:27→08:45)
[2019-01-12] MEDS: Ketorolac Tromethamine 30 MG/ML VIAL IVP PRN ×2 (03:39→20:11)
[2019-01-12 05:30] LABS: Anion Gap 9 mmol/L (10-20); BUN (Urea Nitrogen) 27 mg/dL (8.4-25.7); Calc. Creatinine Clearance 93 mL/min (70-130); Calcium 8.2 mg/dL (7.8-10.44); Carbon Dioxide 22 mmol/L (22-29); Chloride 108 mmol/L (98-107); Estimated GFR-MDRD 66; Glucose 285 mg/dL (70-105); Potassium 4.3 mmol/L (3.5-5.1); Sodium 135 mmol/L (136-145)
[2019-01-12] MEDS: Levothyroxine Sodium 25 MCG TAB PO SCH (07:16)
[2019-01-12] MEDS ORDERED: Chloraseptic Spray 180 ml Bottle PO PRN (07:49)
[2019-01-12] MEDS: HYDROcodone/Acetaminophen 10/325 mg Tablet PO PRN ×2 (08:29→16:22)
--- NOTE | 2019-01-12 11:05 | PRG ---
DATE OF SERVICE: 01/12/2019 SUBJECTIVE: The patient feels better today. He had no acute complaints. OBJECTIVE: VITAL SIGNS: On exam, his temperature is not recorded, pulse 99, blood pressure 126/96, and O2 saturation 99%. Intake for 24 hours 6150, output 2790. HEENT: Unremarkable. NECK: C-collar in place. LUNGS: Clear. CARDIAC: S1 and S2, regular. ABDOMEN: Soft. EXTREMITIES: No edema. LABORATORY DATA: His last blood sugar 148. Sodium 135, potassium 4.3, chloride 108, CO2 of 22, BUN 27, and creatinine 1.1. Beta hydroxybutyrate 0.15. ASSESSMENT: 1. Mild diabetic ketoacidosis, which is now resolved. 2. 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 Bartholomew yesterday. PLAN: 1. Restart insulin pump and restart Accu-Cheks per his routine at home. The patient boluses his insulin per the amount of carbs in his diet and he is well educated on that. 2. Keep in IMCU for the time being and probably go out to the floor tomorrow. 3. Begin ambulating. 4. Consider discontinuing antibiotics if okay with Neurosurgery. Job ID: [id number]
--- NOTE | 2019-01-12 11:08 | PDOC.PN ---
- Subjective Encounter Start Date: 01/12/19 Encounter Start Time: 11:06 Patient seen and examined. No new complaints. No overnight events - Objective Resuscitation Status - Order Detail: 01/11/19 08:26 Resuscitation Status Routine Resuscitation Status: FULL: Full Resuscitation MAR Reviewed: Yes Vital Signs & Weight: Vital Signs (12 hours) Temp 01/12/19 03:49 99.0 F 01/11/19 23:38 99.8 F H Weight Weight 210 lb Most Recent Monitor Data Heart Rate from ECG 88 NIBP 125/82 NIBP BP-Mean 96 Respiration from ECG 20 SpO2 95 I&O: 01/11/19 01/12/19 01/13/19 06:59 06:59 06:59 Intake Total 650 6150.2 Output Total 1100 2790 Balance -450 3360.2 Result Diagrams: 01/11/19 09:44 01/12/19 04:24 Additional Labs: Accuchecks 01/12/19 01/12/19 01/12/19 10:02 09:29 08:10 POC Glucose 148 H 159 H 139 H 01/12/19 01/12/19 01/12/19 07:03 06:02 05:03 POC Glucose 209 H 229 H 255 H 01/12/19 01/12/19 01/12/19 04:08 03:03 02:06 POC Glucose 287 H 259 H 246 H 01/12/19 01/12/19 01/11/19 01:06 00:11 23:04 POC Glucose 235 H 227 H 196 H 01/11/19 01/11/19 01/11/19 22:01 21:06 20:03 POC Glucose 140 H 123 H 116 H 01/11/19 01/11/19 01/11/19 19:38 19:14 18:13 POC Glucose 116 H 101 100 01/11/19 01/11/19 01/11/19 17:21 16:07 14:58 POC Glucose 123 H 190 H 307 H 01/11/19 01/11/19 14:32 13:12 POC Glucose 312 H 318 H EKG Reviewed by me: Yes (nsr) Phys Exam - Physical Examination Constitutional: NAD HEENT: PERRLA, moist MMs, sclera anicteric Neck: no JVD, supple cervical collar+ Respiratory: no wheezing, no rales, no rhonchi Cardiovascular: RRR, no significant murmur, no rub Gastrointestinal: soft, non-tender, no distention, positive bowel sounds Musculoskeletal: no edema, pulses present Neurological: non-focal, normal sensation, moves all 4 limbs Lymphatic: no nodes Psychiatric: normal affect, A&O x 3 Skin: no rash, normal turgor Dx/Plan (1) DKA (diabetic ketoacidoses) Code(s): E13.10 - OTH DIABETES MELLITUS WITH KETOACIDOSIS WITHOUT COMA Status : Acute Qualifiers: Diabetes mellitus type: type 1 (2) Acute kidney injury Code(s): N17.9 - ACUTE KIDNEY FAILURE, UNSPECIFIED Status: Resolved Comment : due to prerenal (3) Elevated d-dimer Code(s): R79.89 - OTHER SPECIFIED ABNORMAL FINDINGS OF BLOOD CHEMISTRY Status : Acute Comment: nonspecific likely due to post operative (4) Leucocytosis Code(s): D72.829 - ELEVATED WHITE BLOOD CELL COUNT, UNSPECIFIED Status: Acute Comment: due to stress response after surgery, doubt any infection (5) Sinus tachycardia Code(s): R00.0 - TACHYCARDIA, UNSPECIFIED Status: Acute Comment: due to pain , volume deplation and rule out DKA (6) Cervical myelopathy with cervical radiculopathy Code(s): M47.12 - OTHER SPONDYLOSIS WITH MYELOPATHY, CERVICAL REGION Status: Chronic (7) Cervical stenosis of spinal canal Code(s): M48.02 - SPINAL STENOSIS, CERVICAL REGION Status: Chronic (8) Diabetes type 2, controlled Code(s): E11.9 - TYPE 2 DIABETES MELLITUS WITHOUT COMPLICATIONS Status: Chronic Comment: currently not well controlled due to off insulin pump, will resume that and will necessary blood test like ketons, lactic acid, and repeat labs today (9) Dyslipidemia Code(s): E78.5 - HYPERLIPIDEMIA, UNSPECIFIED Status: Chronic (10) GERD (gastroesophageal reflux disease) Code(s): K21.9 - GASTRO-ESOPHAGEAL REFLUX DISEASE WITHOUT ESOPHAGITIS Status: Chronic (11) Hypertension Code(s): I10 - ESSENTIAL (PRIMARY) HYPERTENSION Status: Chronic Comment: will hold BP meds for SBP <120 (12) Hypothyroidism Code(s): E03.9 - HYPOTHYROIDISM, UNSPECIFIED Status: Chronic (13) Obesity (BMI 30.0-34.9) Code(s): E66.9 - OBESITY, UNSPECIFIED Status: Chronic (14) Acute urinary retention Code(s): R33.8 - OTHER RETENTION OF URINE Status: Acute - Plan cont current plan of care * urology and pulmonary recommendation noted * voiding trial before discharge * medication reviewed as below * symptomatic treatment. Review of Systems - Review of Systems ENT: negative: Ear Pain, Ear Discharge, Nose Pain, Nose Discharge, Nose Congestion, Mouth Pain, Mouth Swelling, Throat Pain, Throat Swelling, Other Respiratory: negative: Cough, Dry, Shortness of Breath, Hemoptysis, SOB with Excertion, Pleuritic Pain, Sputum, Wheezing Cardiovascular: negative: chest pain, palpitations, orthopnea, paroxysmal nocturnal dyspnea, edema, light headedness, other Gastrointestinal: negative: Nausea, Vomiting, Abdominal Pain, Diarrhea, Constipation, Melena, Hematochezia, Other Genitourinary: negative: Dysuria, Frequency, Incontinence, Hematuria, Retention , Other Musculoskeletal: negative: Neck Pain, Shoulder Pain, Arm Pain, Back Pain, Hand Pain, Leg Pain, Foot Pain, Other - Medications/Allergies Allergies/Adverse Reactions: Allergies Allergy/AdvReac Type Severity Reaction Status Date / Time No Known Allergies Allergy Verified 12/14/18 13:03 Medications: Current Medications Acetaminophen (Tylenol) 650 mg PO Q4H PRN PRN Reason: BORDEN/Fever Or Mild Pain (1-3) Acetaminophen/Codeine Phosphate (Tylenol #3) 1 tab PO Q3H PRN PRN Reason: Mild Pain (1-3) Hydrocodone Bitart/Acetaminophen (Amistad 10/325) 1 tab PO Q4H PRN PRN Reason: Moderate Pain (4-6) Hydrocodone Bitart/Acetaminophen (Amistad 10/325) 2 tab PO Q4H PRN PRN Reason: Severe Pain (7-10) Last Admin: 01/12/19 08:29 Dose: 2 tab Al Hydroxide/Mg Hydroxide (Maalox) 30 ml PO Q4H PRN PRN Reason: Indigestion Atorvastatin Calcium (Lipitor) 80 mg PO HS ON LICENSE OF [facility] Last Admin: 01/11/19 20:42 Dose: Not Given Bacitracin Zinc (Bacitracin) 1 pk TOP BID TINA Last Admin: 01/11/19 20:40 Dose: 1 pk Bisacodyl (Dulcolax) 10 mg MD Q12H PRN PRN Reason: Constipation Dextrose/Water (Dextrose 50%) 25 gm SLOW IVP PRN PRN PRN Reason: Hypoglycemia Glucagon (Glucagon) 1 mg IM PRN PRN PRN Reason: HYPOGLYCEMIA PROTOCOL Cefazolin Sodium/Dextrose 2 gm (/ Device) 50 mls @ 100 mls/hr IVPB 0800,1600, 2359 ON LICENSE OF [facility] Last Admin: 01/12/19 08:28 Dose: 50 mls Dextrose/Water (D5w) 1,000 mls @ 0 mls/hr IV INF PRN PRN Reason: HYPOGLYCEMIA PROTOCOL Potassium Chloride 40 meq/ (Sodium Chloride) 270 mls @ 135 mls/hr IVPB ASDIR PRN PRN Reason: FOR SERUM K+ 2.5 - 3.5 Potassium Chloride 40 meq/ (Device) 100 mls @ 50 mls/hr IVPB ASDIR PRN PRN Reason: FOR SERUM K+ 2.5 - 3.5 Magnesium Sulfate 1 gm/ Sodium (Chloride) 102 mls @ 102 mls/hr IV PRN PRN PRN Reason: MAG LEVEL 1.4 - 2.0 Magnesium Sulfate 2 gm/ Device 100 mls @ 100 mls/hr IVPB ASDIR PRN PRN Reason: MAGNESIUM < 1.4 Potassium Phosphate 9 mmol/ (Sodium Chloride) 103 mls @ 25.75 mls/hr IVPB ASDIR PRN PRN Reason: Phosphate 1.0-1.8 Potassium Phosphate 12 mmol/ (Sodium Chloride) 254 mls @ 63.5 mls/hr IV ASDIR PRN PRN Reason: Serum phosphate 0.5-0.9 Potassium Phosphate 15 mmol/ (Sodium Chloride) 255 mls @ 63.75 mls/hr IV ASDIR PRN PRN Reason: Serum Phos < 0.5 Ketorolac Tromethamine (Toradol) 30 mg IVP Q6H PRN PRN Reason: Moderate Pain (4-6) Last Admin: 01/12/19 03:39 Dose: 30 mg Levothyroxine Sodium (Synthroid) 25 mcg PO 0600 ON LICENSE OF [facility] Last Admin: 01/12/19 07:16 Dose: Not Given Magnesium Hydroxide (Milk Of Magnesium) 30 ml PO Q12H PRN PRN Reason: Constipation Last Admin: 01/11/19 09:57 Dose: 30 ml Magnesium Oxide (Magnesium Oxide) 400 mg PO BIDPRN PRN PRN Reason: FOR SERUM MAG 1.4 - 2.0 Magnesium Oxide (Magnesium Oxide) 800 mg PO PRN PRN PRN Reason: FOR SERUM MAG < 1.4 Miscellaneous Medication (Phos-Nak) 1 pkt PO TIDPRN PRN PRN Reason: FOR PHOS LEVEL 1.0 - 1.8 Miscellaneous Medication (Phos-Nak) 2 pkt PO TIDPRN PRN PRN Reason: FOR PHOS LEVEL 0.5 - 1.0 Morphine Sulfate (Morphine) 4 mg SLOW IVP Q1H PRN PRN Reason: Severe Pain (7-10) Last Admin: 01/11/19 21:38 Dose: 4 mg Ccu Electrolyte (Replacement Protocol) 0 each FS PRN PRN PRN Reason: FOR ELECTROLYTE REPLACEMENT Ondansetron HCl (Zofran) 4 mg IVP Q6H PRN PRN Reason: Nausea/Vomiting Last Admin: 01/11/19 02:55 Dose: 4 mg Pantoprazole Sodium (Protonix) 40 mg PO DAILY ON LICENSE OF [facility] Last Admin: 01/12/19 08:30 Dose: 40 mg Phenol (Chloraseptic [place] 180 Ml Bot) 0 ml PO BIDPRN PRN PRN Reason: Sore Throat Potassium Chloride (K-Dur) 40 meq PO ASDIR PRN PRN Reason: FOR SERUM K+ 2.5 - 3.5 Potassium Chloride (Klor-Con) 40 meq PER TUBE ASDIR PRN PRN Reason: FOR SERUM K+ 2.5-3.5 Promethazine HCl (Phenergan) 12.5 mg IM Q4H PRN PRN Reason: Nausea/Vomiting Last Admin: 01/10/19 22:21 Dose: 12.5 mg Ramipril (Altace) 5 mg PO DAILY ON LICENSE OF [facility] Last Admin: 01/11/19 09:24 Dose: Not Given Sodium Chloride (Flush - Normal Saline) 10 ml IVF PRN PRN PRN Reason: Saline Flush Last Admin: 01/12/19 03:41 Dose: 10 ml Tizanidine HCl (Zanaflex) 4 mg PO Q6H PRN PRN Reason: Muscle Spasm Last Admin: 01/11/19 00:57 Dose: 4 mg Tramadol HCl (Ultram) 50 mg PO Q6H PRN PRN Reason: Mild Pain (1-3)
--- NOTE | 2019-01-12 13:52 | CON ---
DATE OF CONSULTATION: 01/12/2019 Mr. Cruz is doing reasonably well. His blood sugars continue to be an issue as they have been quite elevated and he has polyuria and polydipsia. This is under the management of the medical promotions team leader by Dr. Blue and Dr. Solis. He has had swallowing issues that seem to be stabilizing and I am recommending that we gradually try to increase his diet from the full liquid diet that he is currently on to see what he can tolerate. I did explain to him and his that this process usually requires some trial and error. His Acosta will remain in place until Urology feels it is appropriate to remove. We need to get him out of bed today and we will give instructions to the nurse and Physical Therapy in this regard. I believe it should be safe to mobilize him in his cervical collar. All questions from the patient and his were answered. Job ID: [id number]
--- NOTE | 2019-01-12 15:00 | PRG ---
DATE OF SERVICE: 01/12/2019 SUBJECTIVE: The patient states he is feeling fine. He does have still a lot of neck pain, but denies any significant pain around the penis or from the Acosta catheter. He has had occasional light stinging sensations periodically, but this seems to resolve with bacitracin ointment and with minimizing manipulation of the catheter. OBJECTIVE: VITAL SIGNS: Temperature 99, blood pressure 136/94, heart rate 88, respirations 24, and saturation 95% on room air. GENERAL: Appears slightly somnolent, but otherwise is answering questions appropriately. Does not appear to be any significant distress. HEENT: Neck collar in place with INÉS drain with serosanguineous fluid. ABDOMEN: Soft, nontender, and nondistended. Positive bowel sounds. No organomegaly. : Acosta catheter in place with clear yellow urine. No significant bleeding or inflammation around the meatus. There is mild ecchymosis probably from the procedure or injections of the lidocaine. ASSESSMENT AND PLAN: A 58-year-old white male with urinary retention, likely postsurgical with meatal stenosis, status post meatoplasty yesterday. His incision site looks good. I would recommend continuation of the bacitracin ointment twice a day. The catheter can stay in until he is ready for discharge, at which point, I would attempt a void trial. If the patient is able to void, he can keep the catheter out, but if he cannot void, the catheter should be replaced and I will follow up with him as an outpatient for a void trial at that time. Regardless of if he keeps a catheter or he can have it removed, bacitracin ointment needs to be applied to the tip of the penis twice a day for at least 1 week and I will see him back for a postop check to ensure that his meatus remains patent. I will sign off at the current time, but if there is any further questions, please feel free to contact me. Job ID: [id number]
[2019-01-12] MEDS: Ramipril 5 MG CAP PO SCH (15:13)
[2019-01-12] MEDS: Bacitracin Zinc 1 Packet TOP SCH ×2 (16:41→20:11)
[2019-01-12] MEDS: Atorvastatin Calcium 40 MG TAB PO SCH (20:11)
[2019-01-13] MEDS: CEFAZOLIN 2 GM in Premix Bag 1 BAG IVPB SCH ×2 (00:58→08:45)
[2019-01-13] MEDS: HYDROcodone/Acetaminophen 10/325 mg Tablet PO PRN ×5 (04:41→23:30)
[2019-01-13 05:57] LABS: Anion Gap 10 mmol/L (10-20); BUN (Urea Nitrogen) 19 mg/dL (8.4-25.7); Calc. Creatinine Clearance 128 mL/min (70-130); Calcium 8.4 mg/dL (7.8-10.44); Carbon Dioxide 24 mmol/L (22-29); Chloride 107 mmol/L (98-107); Estimated GFR-MDRD Greater than 90; Glucose 116 mg/dL (70-105); Sodium 137 mmol/L (136-145)
[2019-01-13] MEDS: Levothyroxine Sodium 25 MCG TAB PO SCH (07:13)
[2019-01-13] MEDS: Ramipril 5 MG CAP PO SCH (08:44)
[2019-01-13] MEDS: Bacitracin Zinc 1 Packet TOP SCH ×2 (08:45→23:12)
--- NOTE | 2019-01-13 09:25 | PDOC.PN ---
- Subjective Encounter Start Date: 01/13/19 Encounter Start Time: 09:00 Patient seen and examined. No new complaints. No overnight events - Objective Resuscitation Status - Order Detail: 01/11/19 08:26 Resuscitation Status Routine Resuscitation Status: FULL: Full Resuscitation MAR Reviewed: Yes Vital Signs & Weight: Vital Signs (12 hours) Temp BP 01/13/19 08:44 104/55 L 01/13/19 04:00 99.6 F 01/13/19 00:12 99.3 F Weight Weight 210 lb Most Recent Monitor Data Heart Rate from ECG 85 NIBP 159/109 NIBP BP-Mean 125 Respiration from ECG 20 SpO2 96 I&O: 01/12/19 01/13/19 01/14/19 06:59 06:59 06:59 Intake Total 6150.2 1010 Output Total 2790 1637 Balance 3360.2 -627 Result Diagrams: 01/11/19 09:44 01/13/19 05:15 Additional Labs: Accuchecks 01/13/19 01/13/19 01/12/19 08:03 05:42 22:33 POC Glucose 110 118 H 158 H 01/12/19 01/12/19 01/12/19 20:15 18:28 17:13 POC Glucose 75 88 80 01/12/19 01/12/19 01/12/19 16:29 11:47 10:02 POC Glucose 57 L* 97 148 H 01/12/19 09:29 POC Glucose 159 H EKG Reviewed by me: Yes (nsr) Phys Exam - Physical Examination Constitutional: NAD HEENT: PERRLA, moist MMs, sclera anicteric Neck: no JVD, supple drain+, cervical collar+ Respiratory: no wheezing, no rales, no rhonchi Cardiovascular: RRR, no significant murmur, no rub Gastrointestinal: soft, non-tender, no distention, positive bowel sounds Musculoskeletal: no edema, pulses present Neurological: non-focal, normal sensation, moves all 4 limbs Lymphatic: no nodes Psychiatric: normal affect, A&O x 3 Skin: no rash, normal turgor Dx/Plan (1) DKA (diabetic ketoacidoses) Code(s): E13.10 - OTH DIABETES MELLITUS WITH KETOACIDOSIS WITHOUT COMA Status : Resolved Qualifiers: Diabetes mellitus type: type 1 (2) Acute kidney injury Code(s): N17.9 - ACUTE KIDNEY FAILURE, UNSPECIFIED Status: Resolved Comment : due to prerenal (3) Elevated d-dimer Code(s): R79.89 - OTHER SPECIFIED ABNORMAL FINDINGS OF BLOOD CHEMISTRY Status : Acute Comment: nonspecific likely due to post operative (4) Leucocytosis Code(s): D72.829 - ELEVATED WHITE BLOOD CELL COUNT, UNSPECIFIED Status: Acute Comment: due to stress response after surgery, doubt any infection (5) Sinus tachycardia Code(s): R00.0 - TACHYCARDIA, UNSPECIFIED Status: Acute Comment: due to pain , volume deplation and rule out DKA (6) Cervical myelopathy with cervical radiculopathy Code(s): M47.12 - OTHER SPONDYLOSIS WITH MYELOPATHY, CERVICAL REGION Status: Chronic (7) Cervical stenosis of spinal canal Code(s): M48.02 - SPINAL STENOSIS, CERVICAL REGION Status: Chronic (8) Diabetes type 2, controlled Code(s): E11.9 - TYPE 2 DIABETES MELLITUS WITHOUT COMPLICATIONS Status: Chronic Comment: on insulin pump (9) Dyslipidemia Code(s): E78.5 - HYPERLIPIDEMIA, UNSPECIFIED Status: Chronic (10) GERD (gastroesophageal reflux disease) Code(s): K21.9 - GASTRO-ESOPHAGEAL REFLUX DISEASE WITHOUT ESOPHAGITIS Status: Chronic (11) Hypertension Code(s): I10 - ESSENTIAL (PRIMARY) HYPERTENSION Status: Chronic Comment: will hold BP meds for SBP <120 (12) Hypothyroidism Code(s): E03.9 - HYPOTHYROIDISM, UNSPECIFIED Status: Chronic (13) Obesity (BMI 30.0-34.9) Code(s): E66.9 - OBESITY, UNSPECIFIED Status: Chronic (14) Acute urinary retention Code(s): R33.8 - OTHER RETENTION OF URINE Status: Acute - Plan cont current plan of care, plan discussed w/ family, PT/OT * transfer to surgical floor * \continue insulin pump * continue PT/OT * drain care as per surgeon * medication reviewed as below * symptomatic treatment * discussed with . Review of Systems - Review of Systems ENT: negative: Ear Pain, Ear Discharge, Nose Pain, Nose Discharge, Nose Congestion, Mouth Pain, Mouth Swelling, Throat Pain, Throat Swelling, Other Respiratory: negative: Cough, Dry, Shortness of Breath, Hemoptysis, SOB with Excertion, Pleuritic Pain, Sputum, Wheezing Cardiovascular: negative: chest pain, palpitations, orthopnea, paroxysmal nocturnal dyspnea, edema, light headedness, other Gastrointestinal: negative: Nausea, Vomiting, Abdominal Pain, Diarrhea, Constipation, Melena, Hematochezia, Other Genitourinary: negative: Dysuria, Frequency, Incontinence, Hematuria, Retention , Other Musculoskeletal: negative: Neck Pain, Shoulder Pain, Arm Pain, Back Pain, Hand Pain, Leg Pain, Foot Pain, Other Skin: negative: Rash, Lesions, Andrei, Bruising, Other - Medications/Allergies Allergies/Adverse Reactions: Allergies Allergy/AdvReac Type Severity Reaction Status Date / Time No Known Allergies Allergy Verified 12/14/18 13:03 Medications: Current Medications Acetaminophen (Tylenol) 650 mg PO Q4H PRN PRN Reason: BORDEN/Fever Or Mild Pain (1-3) Acetaminophen/Codeine Phosphate (Tylenol #3) 1 tab PO Q3H PRN PRN Reason: Mild Pain (1-3) Hydrocodone Bitart/Acetaminophen ([place] 10/325) 1 tab PO Q4H PRN PRN Reason: Moderate Pain (4-6) Hydrocodone Bitart/Acetaminophen ([place] 10/325) 2 tab PO Q4H PRN PRN Reason: Severe Pain (7-10) Last Admin: 01/13/19 08:43 Dose: 2 tab Al Hydroxide/Mg Hydroxide (Maalox) 30 ml PO Q4H PRN PRN Reason: Indigestion Atorvastatin Calcium (Lipitor) 80 mg PO HS [facility] Last Admin: 01/12/19 20:11 Dose: 80 mg Bacitracin Zinc (Bacitracin) 1 pk TOP BID [facility] Last Admin: 01/13/19 08:45 Dose: 1 pk Bisacodyl (Dulcolax) 10 mg [place] Q12H PRN PRN Reason: Constipation Dextrose/Water (Dextrose 50%) 25 gm SLOW IVP PRN PRN PRN Reason: Hypoglycemia Glucagon (Glucagon) 1 mg IM PRN PRN PRN Reason: HYPOGLYCEMIA PROTOCOL Cefazolin Sodium/Dextrose 2 gm (/ Device) 50 mls @ 100 mls/hr IVPB 0800,1600, 2359 [facility] Last Admin: 01/13/19 08:45 Dose: 50 mls Dextrose/Water (D5w) 1,000 mls @ 0 mls/hr IV INF PRN PRN Reason: HYPOGLYCEMIA PROTOCOL Potassium Chloride 40 meq/ (Sodium Chloride) 270 mls @ 135 mls/hr IVPB ASDIR PRN PRN Reason: FOR SERUM K+ 2.5 - 3.5 Potassium Chloride 40 meq/ (Device) 100 mls @ 50 mls/hr IVPB ASDIR PRN PRN Reason: FOR SERUM K+ 2.5 - 3.5 Magnesium Sulfate 1 gm/ Sodium (Chloride) 102 mls @ 102 mls/hr IV PRN PRN PRN Reason: MAG LEVEL 1.4 - 2.0 Magnesium Sulfate 2 gm/ Device 100 mls @ 100 mls/hr IVPB ASDIR PRN PRN Reason: MAGNESIUM < 1.4 Potassium Phosphate 9 mmol/ (Sodium Chloride) 103 mls @ 25.75 mls/hr IVPB ASDIR PRN PRN Reason: Phosphate 1.0-1.8 Potassium Phosphate 12 mmol/ (Sodium Chloride) 254 mls @ 63.5 mls/hr IV ASDIR PRN PRN Reason: Serum phosphate 0.5-0.9 Potassium Phosphate 15 mmol/ (Sodium Chloride) 255 mls @ 63.75 mls/hr IV ASDIR PRN PRN Reason: Serum Phos < 0.5 Ketorolac Tromethamine (Toradol) 30 mg IVP Q6H PRN PRN Reason: Moderate Pain (4-6) Last Admin: 01/12/19 20:11 Dose: 30 mg Levothyroxine Sodium (Synthroid) 25 mcg PO 0600 [facility] Last Admin: 01/13/19 07:13 Dose: Not Given Magnesium Hydroxide (Milk Of Magnesium) 30 ml PO Q12H PRN PRN Reason: Constipation Last Admin: 01/11/19 09:57 Dose: 30 ml Magnesium Oxide (Magnesium Oxide) 400 mg PO BIDPRN PRN PRN Reason: FOR SERUM MAG 1.4 - 2.0 Magnesium Oxide (Magnesium Oxide) 800 mg PO PRN PRN PRN Reason: FOR SERUM MAG < 1.4 Miscellaneous Medication (Phos-Nak) 1 pkt PO TIDPRN PRN PRN Reason: FOR PHOS LEVEL 1.0 - 1.8 Miscellaneous Medication (Phos-Nak) 2 pkt PO TIDPRN PRN PRN Reason: FOR PHOS LEVEL 0.5 - 1.0 Morphine Sulfate (Morphine) 4 mg SLOW IVP Q1H PRN PRN Reason: Severe Pain (7-10) Last Admin: 01/11/19 21:38 Dose: 4 mg Ccu Electrolyte (Replacement Protocol) 0 each FS PRN PRN PRN Reason: FOR ELECTROLYTE REPLACEMENT Ondansetron HCl (Zofran) 4 mg IVP Q6H PRN PRN Reason: Nausea/Vomiting Last Admin: 01/11/19 02:55 Dose: 4 mg Pantoprazole Sodium (Protonix) 40 mg PO DAILY [facility] Last Admin: 01/13/19 08:44 Dose: 40 mg Phenol (Chloraseptic [place] 180 Ml Bot) 0 ml PO BIDPRN PRN PRN Reason: Sore Throat Potassium Chloride (K-Dur) 40 meq PO ASDIR PRN PRN Reason: FOR SERUM K+ 2.5 - 3.5 Potassium Chloride (Klor-Con) 40 meq PER TUBE ASDIR PRN PRN Reason: FOR SERUM K+ 2.5-3.5 Promethazine HCl (Phenergan) 12.5 mg IM Q4H PRN PRN Reason: Nausea/Vomiting Last Admin: 01/10/19 22:21 Dose: 12.5 mg Ramipril (Altace) 5 mg PO DAILY [facility] Last Admin: 01/13/19 08:44 Dose: 5 mg Sodium Chloride (Flush - Normal Saline) 10 ml IVF PRN PRN PRN Reason: Saline Flush Last Admin: 01/13/19 01:01 Dose: 10 ml Tizanidine HCl (Zanaflex) 4 mg PO Q6H PRN PRN Reason: Muscle Spasm Last Admin: 01/11/19 00:57 Dose: 4 mg Tramadol HCl (Ultram) 50 mg PO Q6H PRN PRN Reason: Mild Pain (1-3)
[2019-01-13] MEDS: Ondansetron PF 4 MG/2 ML Vial IVP PRN (09:32)
--- NOTE | 2019-01-13 11:10 | PRG ---
DATE OF SERVICE: 01/13/2019 SUBJECTIVE: The patient feels better. His blood sugar is now under control. OBJECTIVE: VITAL SIGNS: Temperature 99.6, pulse 75, blood pressure 159/109, O2 saturation 96%. HEENT: Unremarkable. NECK: No JVD. CHEST: Clear to auscultation. CARDIAC: S1, S2. Regular. ABDOMEN: Soft. EXTREMITIES: No edema. LABORATORY DATA: Sodium 137, potassium 4, chloride 107, CO2 of 24, BUN 19, creatinine 0.8, glucose 110. ASSESSMENT: 1. Resolved diabetic ketoacidosis. 2. Type 1 diabetes mellitus. 3. Penile meatal stenosis. PLAN: The patient can transfer out to the surgical floor. He will continue controlling his blood sugars with his insulin pump. There are no further Pulmonary recommendations and will sign off. Job ID: [id number]
[2019-01-13] MEDS: traMADol HCl 50 MG TAB PO PRN (12:09)
[2019-01-13] MEDS: Promethazine HCl 25 MG/ML VIAL IM PRN (13:52)
[2019-01-13] MEDS: Atorvastatin Calcium 40 MG TAB PO SCH (23:11)
[2019-01-14] MEDS: Levothyroxine Sodium 25 MCG TAB PO SCH (07:22)
[2019-01-14] MEDS: Levothyroxine Sodium 112 MCG TAB PO SCH (07:22)
[2019-01-14] MEDS: HYDROcodone/Acetaminophen 10/325 mg Tablet PO PRN ×4 (07:42→20:29)
[2019-01-14] MEDS: Bacitracin Zinc 1 Packet TOP SCH ×2 (07:42→20:29)
[2019-01-14] MEDS: Ramipril 5 MG CAP PO SCH (07:43)
[2019-01-14 08:07] LABS: #Eosinphils 0.3 thou/uL (0.0-0.7); #Lymphocytes 0.9 thou/uL (1.20-3.40); #Monocytes 0.6 thou/uL (0.11-0.59); #Neutrophils 3.7 thou/uL (1.40-6.50); %Basophils 0.7 % (0.0-1.0); %Lymphocytes 16.5 % (21.0-51.0); %Monocytes 10.6 % (0.0-10.0); %Neutrophils 67.3 % (42.0-75.0); Hemoglobin 11.3 g/dL (14.0-18.0); Mean Corpuscular HGB CONC 32.3 g/dL (32.0-36.0); Mean Corpuscular Hemoglobin 31.4 pg (27.0-31.0); Mean Corpuscular Volume 97.2 fL (78.0-98.0); Mean Platelet Volume 7.6 fL (7.4-10.4); Platelet Count 212 thou/uL (130-400); RBC Distribution Width 11.6 % (11.5-14.5); Red Blood Cell (RBC) Count 3.59 mill/uL (4.70-6.10); White Blood Cell (WBC) Count 5.6 thou/uL (4.8-10.8)
[2019-01-14] MEDS: Ondansetron PF 4 MG/2 ML Vial IVP PRN (08:09)
[2019-01-14] MEDS: Sodium Chloride 0.9% 1,000 ML IV SCH ×2 (08:14→20:30)
[2019-01-14 08:46] LABS: Anion Gap 12 mmol/L (10-20); BUN (Urea Nitrogen) 18 mg/dL (8.4-25.7); Calc. Creatinine Clearance 128 mL/min (70-130); Calcium 8.9 mg/dL (7.8-10.44); Carbon Dioxide 28 mmol/L (22-29); Chloride 104 mmol/L (98-107); Estimated GFR-MDRD Greater than 90; Glucose 74 mg/dL (70-105); Potassium 3.6 mmol/L (3.5-5.1); Sodium 140 mmol/L (136-145)
--- NOTE | 2019-01-14 09:34 | PRG ---
DATE OF SERVICE: 01/14/2019 Postoperative recheck, Mr. Cruz is now postoperative day #4, having undergone anterior cervical diskectomy and fusion and staged procedure with posterior cervical laminectomies and fusion. The patient's states that every day is slightly getting better. Main complaint today is coughing that is causing increased neck pain. The patient was up walking yesterday. His blood glucose has been under much better control. Again, the patient has had good strength in all 4 extremities and denies any arm pain, but no change in his bilateral hand numbness and tingling. His INÉS drain was removed yesterday. There is no drainage from the exit wound, and there is some drainage on the pillowcase but the patient's dressing in regard to the posterior incision, although this was not removed. The patient did feel extremely uncomfortable with moving. We will continue to work with our hospitalist team to help manage the patient's blood glucose, and I have put in a consult for case management. More likely, the patient will either be healthy enough to go home with home health or may not even need home health at all. I have asked that we limit his by mouth fluids until the coughing improves, but continue with either full liquid diet versus clear liquids whatever the patient can get down and I asked him to limit straw usage. Restarted his fluids to ensure that he does not get dehydrated. At that time, Neurology was consulted over the weekend, and the patient continues with a Acosta catheter given some urinary retention. Regardless, we will continue to monitor the patient and hope for discharge in the next few days depending on the patient's pain control, but overall, the patient and his understand that he needs to continue time to recover, though every day he is getting better. Please call with any changes in the patient's neurologic status. Job ID: [id number] MTDD
[2019-01-14] MEDS: tiZANidine HCl 4 MG TAB PO PRN (09:58)
[2019-01-14] MEDS: traMADol HCl 50 MG TAB PO PRN (09:58)
--- NOTE | 2019-01-14 10:23 | PDOC.PN ---
- Subjective Encounter Start Date: 01/14/19 Encounter Start Time: 08:00 Patient seen and examined. No new complaints. No overnight events pt has cough - Objective Resuscitation Status - Order Detail: 01/11/19 08:26 Resuscitation Status Routine Resuscitation Status: FULL: Full Resuscitation MAR Reviewed: Yes Vital Signs & Weight: Vital Signs (12 hours) Temp Pulse Resp BP BP Pulse Ox 01/14/19 07:45 98.9 F 81 20 157/97 H 96 01/14/19 07:43 157/97 H 01/14/19 06:33 95 01/14/19 04:10 98.6 F 78 14 114/73 95 01/13/19 23:22 97.7 F 81 18 154/97 H 95 Weight Weight 210 lb Most Recent Monitor Data Heart Rate from ECG 71 NIBP 129/90 NIBP BP-Mean 103 Respiration from ECG 17 SpO2 94 I&O: 01/13/19 01/14/19 01/15/19 06:59 06:59 06:59 Intake Total 1010 1130 Output Total 1637 953 Balance -627 177 Result Diagrams: 01/14/19 07:35 01/14/19 07:35 Additional Labs: Accuchecks 01/14/19 01/14/19 01/13/19 07:15 06:36 18:25 POC Glucose 71 57 L* 130 H 01/13/19 01/13/19 01/13/19 15:34 11:58 10:23 POC Glucose 186 H 114 H 112 H Phys Exam - Physical Examination Constitutional: NAD HEENT: PERRLA, moist MMs, sclera anicteric Neck: no JVD, supple cervical collar Respiratory: no wheezing, no rales, no rhonchi Cardiovascular: RRR, no significant murmur, no rub Gastrointestinal: soft, non-tender, no distention, positive bowel sounds Musculoskeletal: no edema, pulses present Neurological: non-focal, normal sensation Lymphatic: no nodes Psychiatric: normal affect, A&O x 3 Skin: no rash, normal turgor Dx/Plan (1) DKA (diabetic ketoacidoses) Code(s): E13.10 - OTH DIABETES MELLITUS WITH KETOACIDOSIS WITHOUT COMA Status : Resolved Qualifiers: Diabetes mellitus type: type 1 (2) Acute kidney injury Code(s): N17.9 - ACUTE KIDNEY FAILURE, UNSPECIFIED Status: Resolved Comment : due to prerenal (3) Elevated d-dimer Code(s): R79.89 - OTHER SPECIFIED ABNORMAL FINDINGS OF BLOOD CHEMISTRY Status : Acute Comment: nonspecific likely due to post operative (4) Leucocytosis Code(s): D72.829 - ELEVATED WHITE BLOOD CELL COUNT, UNSPECIFIED Status: Acute Comment: due to stress response after surgery, doubt any infection (5) Sinus tachycardia Code(s): R00.0 - TACHYCARDIA, UNSPECIFIED Status: Acute Comment: due to pain , volume deplation and rule out DKA (6) Cervical myelopathy with cervical radiculopathy Code(s): M47.12 - OTHER SPONDYLOSIS WITH MYELOPATHY, CERVICAL REGION Status: Chronic (7) Cervical stenosis of spinal canal Code(s): M48.02 - SPINAL STENOSIS, CERVICAL REGION Status: Chronic (8) Diabetes type 2, controlled Code(s): E11.9 - TYPE 2 DIABETES MELLITUS WITHOUT COMPLICATIONS Status: Chronic Comment: on insulin pump (9) Dyslipidemia Code(s): E78.5 - HYPERLIPIDEMIA, UNSPECIFIED Status: Chronic (10) GERD (gastroesophageal reflux disease) Code(s): K21.9 - GASTRO-ESOPHAGEAL REFLUX DISEASE WITHOUT ESOPHAGITIS Status: Chronic (11) Hypertension Code(s): I10 - ESSENTIAL (PRIMARY) HYPERTENSION Status: Chronic Comment: will hold BP meds for SBP <120 (12) Hypothyroidism Code(s): E03.9 - HYPOTHYROIDISM, UNSPECIFIED Status: Chronic (13) Obesity (BMI 30.0-34.9) Code(s): E66.9 - OBESITY, UNSPECIFIED Status: Chronic (14) Acute urinary retention Code(s): R33.8 - OTHER RETENTION OF URINE Status: Acute - Plan cont current plan of care, plan discussed w/ family * medication reviewed as below * symptomatic treatment * watch for hypoglycemia * pain controlled * discussed with . * continue post operative care Review of Systems - Review of Systems ENT: negative: Ear Pain, Ear Discharge, Nose Pain, Nose Discharge, Nose Congestion, Mouth Pain, Mouth Swelling, Throat Pain, Throat Swelling, Other Respiratory: Cough. negative: Dry, Shortness of Breath, Hemoptysis, SOB with Excertion, Pleuritic Pain, Sputum, Wheezing Cardiovascular: negative: chest pain, palpitations, orthopnea, paroxysmal nocturnal dyspnea, edema, light headedness, other Gastrointestinal: negative: Nausea, Vomiting, Abdominal Pain, Diarrhea, Constipation, Melena, Hematochezia, Other Genitourinary: negative: Dysuria, Frequency, Incontinence, Hematuria, Retention , Other Musculoskeletal: Neck Pain. negative: Shoulder Pain, Arm Pain, Back Pain, Hand Pain, Leg Pain, Foot Pain, Other - Medications/Allergies Allergies/Adverse Reactions: Allergies Allergy/AdvReac Type Severity Reaction Status Date / Time No Known Allergies Allergy Verified 12/14/18 13:03 Medications: Current Medications Acetaminophen (Tylenol) 650 mg PO Q4H PRN PRN Reason: BORDEN/Fever Or Mild Pain (1-3) Acetaminophen/Codeine Phosphate (Tylenol #3) 1 tab PO Q3H PRN PRN Reason: Mild Pain (1-3) Hydrocodone Bitart/Acetaminophen ([place] 10/325) 1 tab PO Q4H PRN PRN Reason: Moderate Pain (4-6) Hydrocodone Bitart/Acetaminophen ([place] 10/325) 2 tab PO Q4H PRN PRN Reason: Severe Pain (7-10) Last Admin: 01/14/19 07:42 Dose: 2 tab Al Hydroxide/Mg Hydroxide (Maalox) 30 ml PO Q4H PRN PRN Reason: Indigestion Atorvastatin Calcium (Lipitor) 80 mg PO HS [facility] Last Admin: 01/13/19 23:11 Dose: 80 mg Bacitracin Zinc (Bacitracin) 1 pk TOP BID [facility] Last Admin: 01/14/19 07:42 Dose: 1 pk Bisacodyl (Dulcolax) 10 mg [place] Q12H PRN PRN Reason: Constipation Dextrose/Water (Dextrose 50%) 25 gm SLOW IVP PRN PRN PRN Reason: Hypoglycemia Glucagon (Glucagon) 1 mg IM PRN PRN PRN Reason: HYPOGLYCEMIA PROTOCOL Dextrose/Water (D5w) 1,000 mls @ 0 mls/hr IV INF PRN PRN Reason: HYPOGLYCEMIA PROTOCOL Sodium Chloride (Normal Saline 0.9%) 1,000 mls @ 75 mls/hr IV .[id number] [facility] Last Admin: 01/14/19 08:14 Dose: 1,000 mls Ketorolac Tromethamine (Toradol) 30 mg IVP Q6H PRN PRN Reason: Moderate Pain (4-6) Last Admin: 01/12/19 20:11 Dose: 30 mg Levothyroxine Sodium (Synthroid) 25 mcg PO 0600 [facility] Last Admin: 01/14/19 07:22 Dose: Not Given Levothyroxine Sodium (Synthroid) 112 mcg PO 0600 [facility] Last Admin: 01/14/19 07:22 Dose: Not Given Morphine Sulfate (Morphine) 4 mg SLOW IVP Q1H PRN PRN Reason: Severe Pain (7-10) Last Admin: 01/11/19 21:38 Dose: 4 mg Ondansetron HCl (Zofran) 4 mg IVP Q6H PRN PRN Reason: Nausea/Vomiting Last Admin: 01/14/19 08:09 Dose: 4 mg Pantoprazole Sodium (Protonix) 40 mg PO DAILY [facility] Last Admin: 01/14/19 07:42 Dose: 40 mg Phenol (Chloraseptic [place] 180 Ml Bot) 0 ml PO BIDPRN PRN PRN Reason: Sore Throat Promethazine HCl (Phenergan) 12.5 mg IM Q4H PRN PRN Reason: Nausea/Vomiting Last Admin: 01/13/19 13:52 Dose: 12.5 mg Ramipril (Altace) 5 mg PO DAILY [facility] Last Admin: 01/14/19 07:43 Dose: 5 mg Sodium Chloride (Flush - Normal Saline) 10 ml IVF PRN PRN PRN Reason: Saline Flush Last Admin: 01/13/19 01:01 Dose: 10 ml Tizanidine HCl (Zanaflex) 4 mg PO Q6H PRN PRN Reason: Muscle Spasm Last Admin: 01/14/19 09:58 Dose: 4 mg Tramadol HCl (Ultram) 50 mg PO Q6H PRN PRN Reason: Mild Pain (1-3) Last Admin: 01/14/19 09:58 Dose: 50 mg
[2019-01-14] MEDS: Ketorolac Tromethamine 30 MG/ML VIAL IVP PRN ×2 (13:50→20:28)
[2019-01-14] MEDS: Morphine 4 MG/ML VIAL SLOW IVP PRN (13:51)
[2019-01-14] MEDS: Atorvastatin Calcium 40 MG TAB PO SCH (20:29)
[2019-01-15] MEDS: HYDROcodone/Acetaminophen 10/325 mg Tablet PO PRN ×4 (03:36→21:47)
[2019-01-15] MEDS: tiZANidine HCl 4 MG TAB PO PRN ×2 (03:36→20:39)
[2019-01-15] MEDS: Morphine 4 MG/ML VIAL SLOW IVP PRN (05:29)
[2019-01-15] MEDS: Levothyroxine Sodium 112 MCG TAB PO SCH (05:33)
[2019-01-15] MEDS: Levothyroxine Sodium 25 MCG TAB PO SCH (05:33)
[2019-01-15] MEDS: Bacitracin Zinc 1 Packet TOP SCH ×2 (08:39→20:40)
[2019-01-15] MEDS: Sodium Chloride 0.9% 1,000 ML IV SCH (08:42)
[2019-01-15] MEDS: Ondansetron PF 4 MG/2 ML Vial IVP PRN (10:04)
[2019-01-15] MEDS ORDERED: Milk Of Magnesia 30 ML UDCUP PO SCH (10:45)
[2019-01-15] MEDS: Ramipril 5 MG CAP PO SCH ×2 (11:01→20:39)
[2019-01-15] MEDS ORDERED: Milk Of Magnesia 30 ML UDCUP PO PRN (12:00)
--- NOTE | 2019-01-15 12:00 | PDOC.PN ---
- Subjective Encounter Start Date: 01/15/19 Encounter Start Time: 08:50 Patient seen and examined. No overnight events pt has constipation, - Objective Resuscitation Status - Order Detail: 01/11/19 08:26 Resuscitation Status Routine Resuscitation Status: FULL: Full Resuscitation MAR Reviewed: Yes Vital Signs & Weight: Vital Signs (12 hours) Temp Pulse Resp BP BP Pulse Ox 01/15/19 11:07 97.8 F 69 18 158/99 H 97 01/15/19 07:48 96 01/15/19 07:30 98.8 F 75 18 154/96 H 94 L 01/15/19 04:39 98.7 F 70 20 152/82 H 96 01/15/19 00:42 98.6 F 75 20 146/92 H 98 Weight Admit Weight 210 lb Weight 210 lb Most Recent Monitor Data Heart Rate from ECG 71 NIBP 129/90 NIBP BP-Mean 103 Respiration from ECG 17 SpO2 94 I&O: 01/14/19 01/15/19 01/16/19 06:59 06:59 06:59 Intake Total 1130 3465 Output Total 953 925 Balance 177 2540 Result Diagrams: 01/14/19 07:35 01/14/19 07:35 Additional Labs: Accuchecks 01/15/19 01/15/19 01/14/19 11:03 06:01 20:40 POC Glucose 128 H 179 H 126 H 01/14/19 01/14/19 01/14/19 18:00 15:50 13:59 POC Glucose 168 H 71 94 Phys Exam - Physical Examination Constitutional: NAD HEENT: PERRLA, moist MMs, sclera anicteric Neck: no JVD, supple cervical collar+ Respiratory: no wheezing, no rales, no rhonchi Cardiovascular: RRR, no significant murmur, no rub Gastrointestinal: soft, non-tender, no distention, positive bowel sounds Musculoskeletal: no edema, pulses present Neurological: non-focal, normal sensation Lymphatic: no nodes Psychiatric: normal affect, A&O x 3 Skin: no rash, normal turgor Dx/Plan (1) DKA (diabetic ketoacidoses) Code(s): E13.10 - OTH DIABETES MELLITUS WITH KETOACIDOSIS WITHOUT COMA Status : Resolved Qualifiers: Diabetes mellitus type: type 1 (2) Acute kidney injury Code(s): N17.9 - ACUTE KIDNEY FAILURE, UNSPECIFIED Status: Resolved Comment : due to prerenal (3) Elevated d-dimer Code(s): R79.89 - OTHER SPECIFIED ABNORMAL FINDINGS OF BLOOD CHEMISTRY Status : Acute Comment: nonspecific likely due to post operative (4) Leucocytosis Code(s): D72.829 - ELEVATED WHITE BLOOD CELL COUNT, UNSPECIFIED Status: Resolved Comment: due to stress response after surgery, doubt any infection (5) Sinus tachycardia Code(s): R00.0 - TACHYCARDIA, UNSPECIFIED Status: Resolved Comment: due to pain, volume deplation and rule out DKA (6) Cervical myelopathy with cervical radiculopathy Code(s): M47.12 - OTHER SPONDYLOSIS WITH MYELOPATHY, CERVICAL REGION Status: Chronic (7) Cervical stenosis of spinal canal Code(s): M48.02 - SPINAL STENOSIS, CERVICAL REGION Status: Chronic (8) Diabetes type 2, controlled Code(s): E11.9 - TYPE 2 DIABETES MELLITUS WITHOUT COMPLICATIONS Status: Chronic Comment: on insulin pump (9) Dyslipidemia Code(s): E78.5 - HYPERLIPIDEMIA, UNSPECIFIED Status: Chronic (10) GERD (gastroesophageal reflux disease) Code(s): K21.9 - GASTRO-ESOPHAGEAL REFLUX DISEASE WITHOUT ESOPHAGITIS Status: Chronic (11) Hypertension Code(s): I10 - ESSENTIAL (PRIMARY) HYPERTENSION Status: Chronic Comment: will hold BP meds for SBP <120 (12) Hypothyroidism Code(s): E03.9 - HYPOTHYROIDISM, UNSPECIFIED Status: Chronic (13) Obesity (BMI 30.0-34.9) Code(s): E66.9 - OBESITY, UNSPECIFIED Status: Chronic (14) Acute urinary retention Code(s): R33.8 - OTHER RETENTION OF URINE Status: Acute (15) Constipation Code(s): K59.00 - CONSTIPATION, UNSPECIFIED Status: Acute - Plan cont current plan of care, plan discussed w/ family, PT/OT * voiding trial before discharge * add milk of magnesia and miralax for constipation * medication reviewed as below * symptomatic treatment * stable medically * may need rehab?. Review of Systems - Review of Systems ENT: negative: Ear Pain, Ear Discharge, Nose Pain, Nose Discharge, Nose Congestion, Mouth Pain, Mouth Swelling, Throat Pain, Throat Swelling, Other Respiratory: negative: Cough, Dry, Shortness of Breath, Hemoptysis, SOB with Excertion, Pleuritic Pain, Sputum, Wheezing Cardiovascular: negative: chest pain, palpitations, orthopnea, paroxysmal nocturnal dyspnea, edema, light headedness, other Gastrointestinal: Constipation. negative: Nausea, Vomiting, Abdominal Pain, Diarrhea, Melena, Hematochezia, Other Genitourinary: negative: Dysuria, Frequency, Incontinence, Hematuria, Retention , Other Musculoskeletal: Neck Pain. negative: Shoulder Pain, Arm Pain, Back Pain, Hand Pain, Leg Pain, Foot Pain, Other - Medications/Allergies Allergies/Adverse Reactions: Allergies Allergy/AdvReac Type Severity Reaction Status Date / Time No Known Allergies Allergy Verified 12/14/18 13:03 Medications: Current Medications Acetaminophen (Tylenol) 650 mg PO Q4H PRN PRN Reason: BORDEN/Fever Or Mild Pain (1-3) Acetaminophen/Codeine Phosphate (Tylenol #3) 1 tab PO Q3H PRN PRN Reason: Mild Pain (1-3) Hydrocodone Bitart/Acetaminophen (Sesser 10/325) 1 tab PO Q4H PRN PRN Reason: Moderate Pain (4-6) Hydrocodone Bitart/Acetaminophen (Sesser 10/325) 2 tab PO Q4H PRN PRN Reason: Severe Pain (7-10) Last Admin: 01/15/19 11:26 Dose: 2 tab Al Hydroxide/Mg Hydroxide (Maalox) 30 ml PO Q4H PRN PRN Reason: Indigestion Atorvastatin Calcium (Lipitor) 80 mg PO HS [facility] Last Admin: 01/14/19 20:29 Dose: 80 mg Bacitracin Zinc (Bacitracin) 1 pk TOP BID [facility] Last Admin: 01/15/19 08:39 Dose: 1 pk Bisacodyl (Dulcolax) 10 mg IA Q12H PRN PRN Reason: Constipation Dextrose/Water (Dextrose 50%) 25 gm SLOW IVP PRN PRN PRN Reason: Hypoglycemia Glucagon (Glucagon) 1 mg IM PRN PRN PRN Reason: HYPOGLYCEMIA PROTOCOL Dextrose/Water (D5w) 1,000 mls @ 0 mls/hr IV INF PRN PRN Reason: HYPOGLYCEMIA PROTOCOL Sodium Chloride (Normal Saline 0.9%) 1,000 mls @ 75 mls/hr IV .[id number] [facility] Last Admin: 01/15/19 08:42 Dose: 1,000 mls Levothyroxine Sodium (Synthroid) 25 mcg PO 0600 [facility] Last Admin: 01/15/19 05:33 Dose: Not Given Levothyroxine Sodium (Synthroid) 112 mcg PO 0600 [facility] Last Admin: 01/15/19 05:33 Dose: Not Given Magnesium Hydroxide (Milk Of Magnesium) 30 ml PO NOW [facility] Stop: 01/15/19 12:45 Last Admin: 01/15/19 11:07 Dose: 30 ml Morphine Sulfate (Morphine) 4 mg SLOW IVP Q1H PRN PRN Reason: Severe Pain (7-10) Last Admin: 01/15/19 05:29 Dose: 4 mg Ondansetron HCl (Zofran) 4 mg IVP Q6H PRN PRN Reason: Nausea/Vomiting Last Admin: 01/15/19 10:04 Dose: 4 mg Pantoprazole Sodium (Protonix) 40 mg PO DAILY [facility] Last Admin: 01/15/19 08:39 Dose: 40 mg Phenol (Chloraseptic [place] 180 Ml Bot) 0 ml PO BIDPRN PRN PRN Reason: Sore Throat Polyethylene Glycol (Miralax) 17 gm PO BID [facility] Promethazine HCl (Phenergan) 12.5 mg IM Q4H PRN PRN Reason: Nausea/Vomiting Last Admin: 01/13/19 13:52 Dose: 12.5 mg Ramipril (Altace) 5 mg PO HS [facility] Sodium Chloride (Flush - Normal Saline) 10 ml IVF PRN PRN PRN Reason: Saline Flush Last Admin: 01/13/19 01:01 Dose: 10 ml Tizanidine HCl (Zanaflex) 4 mg PO Q6H PRN PRN Reason: Muscle Spasm Last Admin: 01/15/19 03:36 Dose: 4 mg Tramadol HCl (Ultram) 50 mg PO Q6H PRN PRN Reason: Mild Pain (1-3) Last Admin: 01/14/19 09:58 Dose: 50 mg
--- NOTE | 2019-01-15 12:09 | PRG ---
DATE OF SERVICE: 01/15/2019 Mr. Cruz is now hospital day #5 from front and back decompression and stabilization. His biggest issue now is nausea and lack of appetite. I think a lot of this is due to gastroparesis related to his diabetes. His control has fluctuated and we appreciate the assistance by our medical colleagues. He is sitting in a bedside chair and again feels nauseated. I again talked to him about the purpose of surgery and while he endorses some paresthesias in the right fingers, he is ambulating and moving all extremities to command, nonfocal. Job ID: [id number]
[2019-01-15] MEDS ORDERED: Promethazine HCl 25 MG/ML VIAL SLOW IVP PRN (12:17)
[2019-01-15] MEDS ORDERED: Cepastat Lozenges 1 LOZ PO PRN (15:54)
[2019-01-15] MEDS ORDERED: Sodium Chloride 0.65% Nasal 44 ML BOT EA NARE PRN (15:54)
[2019-01-15] MEDS ORDERED: Loratadine 10 MG TAB PO PRN (15:54)
[2019-01-15] MEDS ORDERED: Bisacodyl 10 MG SUPP PR PRN (15:54)
[2019-01-15] MEDS ORDERED: Artificial Tears 18 DROP/0.9 ML EA EYE PRN (15:54)
[2019-01-15] MEDS ORDERED: Labetalol HCl 100 MG/20 ML VIAL SLOW IVP PRN (15:54)
[2019-01-15] MEDS ORDERED: Eucerin (Mineral Oil/Petrolatum,White) 30 gm Jar TOP PRN (15:54)
[2019-01-15] MEDS: hydrALAZINE 20 MG/ML VIAL SLOW IVP PRN (16:18)
[2019-01-15] MEDS: Atorvastatin Calcium 40 MG TAB PO SCH (20:39)
[2019-01-15] MEDS: Polyethylene Glycol 3350 17 GM Packet PO SCH (20:40)
[2019-01-15] MEDS: Diabetic Tussin 200 MG/10 ML UDCUP PO PRN (21:45)
[2019-01-16] MEDS: hydrALAZINE 20 MG/ML VIAL SLOW IVP PRN ×2 (05:18→14:54)
[2019-01-16] MEDS: Levothyroxine Sodium 112 MCG TAB PO SCH (06:36)
[2019-01-16] MEDS: Levothyroxine Sodium 25 MCG TAB PO SCH (06:36)
[2019-01-16] MEDS: HYDROcodone/Acetaminophen 10/325 mg Tablet PO PRN ×3 (08:45→21:15)
[2019-01-16] MEDS: Ondansetron PF 4 MG/2 ML Vial IVP PRN (08:45)
[2019-01-16] MEDS: Bacitracin Zinc 1 Packet TOP SCH ×2 (08:45→21:16)
[2019-01-16] MEDS: Polyethylene Glycol 3350 17 GM Packet PO SCH (08:45)
[2019-01-16] MEDS ORDERED: Scopolamine 1.5 mg/72 hour Patch TD SCH (09:30)
--- NOTE | 2019-01-16 09:40 | PRG ---
DATE OF SERVICE: 01/16/2019 Mr. Cruz is 6 days into his hospitalization for anterior-posterior decompression of the cervical cord with associated stabilization. Neurologically, he is intact. He has simply been plagued with significant nausea in these last few days with very little appetite. I strongly suspect this is related to diabetic gastroparesis as the patient is a type 1 diabetic, has had labile sugars. We will consult GI and ask for their help in regard to perhaps initiating Reglan and we will initiate a scopolamine patch. Frankly at this point, this is the biggest thing holding the patient up. I would ask our medical colleagues to assist in this regard. Job ID: [id number]
--- NOTE | 2019-01-16 12:07 | ULT ---
BILATERAL LOWER EXTREMITY VENOUS ULTRASOUND WITH DOPPLER: HISTORY: Impaired mobility. Recent surgery. COMPARISON: None. TECHNIQUE: Benitez scale, color flow, Doppler imaging, and spectral waveform analysis was performed of the left and right lower extremity venous system. FINDINGS: Bilaterally, there is compressibility, presence of flow, and augmentation of the common femoral vein, femoral veins, and popliteal veins. There is flow in bilateral greater saphenous veins, profunda fe moral veins, and posterior tibial veins. IMPRESSION: No evidence of thrombus in the left or right lower extremity venous system. POS: PEGGY
[2019-01-16] MEDS ORDERED: Hydrocerin (Eucerin) Cream 120 gm Jar TOP PRN (13:00)
[2019-01-16] MEDS: Metoclopramide HCl 10 MG/2 ML VIAL IVP SCH ×2 (14:50→21:18)
[2019-01-16] MEDS: Diabetic Tussin 200 MG/10 ML UDCUP PO PRN (18:18)
[2019-01-16] MEDS: Senokot S 8.6-50 MG TAB PO SCH (21:15)
[2019-01-16] MEDS: Atorvastatin Calcium 40 MG TAB PO SCH (21:16)
[2019-01-16] MEDS: Ramipril 5 MG CAP PO SCH (21:16)
[2019-01-16] MEDS: tiZANidine HCl 4 MG TAB PO PRN (21:16)
--- NOTE | 2019-01-16 23:23 | PDOC.PN ---
- Subjective Encounter Start Date: 01/16/19 Encounter Start Time: 12:30 Reports he has modest pain unless he is moving around or coughing. No BM since surgery. Has some audible bowel sounds, but no sense of pressure. Still has some nausea. - Objective Resuscitation Status - Order Detail: 01/11/19 08:26 Resuscitation Status Routine Resuscitation Status: FULL: Full Resuscitation Vital Signs & Weight: Vital Signs (12 hours) Temp Pulse Resp BP BP BP Pulse Ox 01/16/19 21:16 159/96 H 01/16/19 20:34 98.9 F 82 18 159/96 H 96 01/16/19 15:35 98.4 F 93 20 156/98 H 96 01/16/19 14:50 73 178/101 H 01/16/19 12:00 97.9 F 73 20 168/92 H 97 Weight Admit Weight 210 lb Weight 210 lb Most Recent Monitor Data Heart Rate from ECG 71 NIBP 129/90 NIBP BP-Mean 103 Respiration from ECG 17 SpO2 94 I&O: 01/15/19 01/16/19 01/17/19 06:59 06:59 06:59 Intake Total 3465 2260 960 Output Total 925 1350 1050 Balance 2540 910 -90 Result Diagrams: 01/14/19 07:35 01/14/19 07:35 Additional Labs: Accuchecks 01/16/19 01/16/19 01/16/19 20:49 15:38 11:14 POC Glucose 123 H 174 H 119 H 01/16/19 05:48 POC Glucose 162 H Phys Exam - Physical Examination Appears a little uncomfortable. Respiratory: no wheezing, no rales, no rhonchi, clear to auscultation bilateral Cardiovascular: RRR, no significant murmur Gastrointestinal: soft, non-tender, no distention, positive bowel sounds Musculoskeletal: no edema Neurological: non-focal Psychiatric: normal affect, A&O x 3 Dx/Plan (1) Cervical myelopathy with cervical radiculopathy Code(s): M47.12 - OTHER SPONDYLOSIS WITH MYELOPATHY, CERVICAL REGION Status: Chronic (2) Cervical stenosis of spinal canal Code(s): M48.02 - SPINAL STENOSIS, CERVICAL REGION Status: Chronic (3) Constipation Code(s): K59.00 - CONSTIPATION, UNSPECIFIED Status: Acute (4) Diabetes type 2, controlled Code(s): E11.9 - TYPE 2 DIABETES MELLITUS WITHOUT COMPLICATIONS Status: Chronic Comment: on insulin pump (5) Hypertension Code(s): I10 - ESSENTIAL (PRIMARY) HYPERTENSION Status: Chronic Comment: will hold BP meds for SBP <120 (6) Hypothyroidism Code(s): E03.9 - HYPOTHYROIDISM, UNSPECIFIED Status: Chronic (7) DKA (diabetic ketoacidoses) Code(s): E13.10 - OTH DIABETES MELLITUS WITH KETOACIDOSIS WITHOUT COMA Status : Resolved Qualifiers: Diabetes mellitus type: type 1 (8) Meatal stenosis Code(s): [id number] - Status: Acute (9) Acute urinary retention Code(s): R33.8 - OTHER RETENTION OF URINE Status: Acute (10) Dyslipidemia Code(s): E78.5 - HYPERLIPIDEMIA, UNSPECIFIED Status: Chronic (11) GERD (gastroesophageal reflux disease) Code(s): K21.9 - GASTRO-ESOPHAGEAL REFLUX DISEASE WITHOUT ESOPHAGITIS Status: Chronic - Plan * Post-op cervical decompression. Per Neurosurg. * BP very high at times, but improved. Has PRN's and is on his usual home meds. Suspect it is secondary to pain or nausea. Continue to monitor. * He has adequate PRN's for nausea. May be gastroparesis. Started on Reglan. * Has adequate PRN's for constipation. Increase mobility as tolerate. * S/P meatoplasty. Will need voiding trial prior to discharge.
[2019-01-17] MEDS: Diabetic Tussin 200 MG/10 ML UDCUP PO PRN ×2 (03:41→22:40)
[2019-01-17] MEDS: Metoclopramide HCl 10 MG/2 ML VIAL IVP SCH ×3 (05:52→21:04)
[2019-01-17] MEDS: Levothyroxine Sodium 112 MCG TAB PO SCH (05:58)
[2019-01-17] MEDS: Levothyroxine Sodium 25 MCG TAB PO SCH (05:58)
[2019-01-17] MEDS: Milk Of Magnesia 30 ML UDCUP PO SCH ×2 (08:11→15:59)
[2019-01-17] MEDS: Polyethylene Glycol 3350 17 GM Packet PO SCH (08:11)
[2019-01-17] MEDS: Bacitracin Zinc 1 Packet TOP SCH ×2 (08:12→21:17)
[2019-01-17] MEDS: Senokot S 8.6-50 MG TAB PO SCH ×2 (08:12→21:16)
[2019-01-17] MEDS: Bisacodyl 10 MG SUPP PR SCH (08:14)
[2019-01-17] MEDS: HYDROcodone/Acetaminophen 10/325 mg Tablet PO PRN ×4 (08:15→21:15)
--- NOTE | 2019-01-17 08:31 | CON ---
DATE OF CONSULTATION: 01/16/2019 REASON FOR CONSULTATION: Poor appetite, nausea, and abdominal bloating. HISTORY OF PRESENT ILLNESS: Mr. Fernando Cruz is a 58-year-old male, who has had cervical spine surgery by Dr. Cheng 5 days ago. The patient also was transferred to [facility] because of uncontrolled diabetes mellitus and ketoacidosis. He was on insulin drip for a day or 2. Now, the blood sugar is controlled. He had a surgery and he is recovery from surgery. He has mild to moderate pain over the neck area. Most bothersome to him is coughing with some secretions in the throat_.. He is on scopolamine patch this morning. The patient has been having nausea, but no vomiting. He does not feel like eating and he feels full and bloated after he eats a few bites of food. He has no abdominal pain. No similar episodes in the past. Medications were reviewed, which include Zofran, promethazine, and pantoprazole. Also he was started on scopolamine patch by Dr. Cheng today. The patient is not having a bowel movement, but he is passing small amount of gas. No relevant history. ALLERGIES: NONE. MEDICAL ILLNESSES: 1. Hypertension. 2. Hypothyroidism. 3. Hyperlipidemia. SOCIAL HISTORY: The patient is . The patient does not smoke or drink alcohol. FAMILY HISTORY: Stroke and coronary artery disease. MEDICATIONS: List reviewed. REVIEW OF SYSTEMS: A 10-point system reviewed; 1. Remarkable for pain over the operative site. 2. Extreme mucus in throat, not able to cough up, but is coughing off and on. 3. Poor appetite, nausea, abdominal bloating. PHYSICAL EXAMINATION: GENERAL: He appears very comfortable. He is awake, alert, and oriented to time, place, person. VITAL SIGNS: He is afebrile. Pulse is 76, blood pressure 156/94. HEENT: Conjunctivae clear. NECK: He has a neck brace. CARDIOVASCULAR SYSTEM: First and second heart sounds normal. LUNGS: Clear to auscultation. ABDOMEN: Soft to palpate. Abdomen is nontender. Abdomen is nondistended. His bowel sounds almost absent, I could not hear any bowel sounds. EXTREMITIES: Reveal no edema. LABORATORY DATA: From 2 days ago on 01/14/2019, WBC 5.6, hemoglobin 11.3, hematocrit 34.6, MCV 97.2, platelet count is 212,000, polys were 67, lymphocytes 16, and monocytes 10. Blood sugar today is 119. Chem-7 on 01/10/2019, sodium 140, potassium 3.6, chloride 104, bicarb 28, BUN is 18, creatinine is 0.83, and calcium 8.9. CLINICAL IMPRESSION: A 58-year-old male with status post cervical spine surgery, has developed some nausea and poor appetite. He has been on ondansetron and also he is on promethazine. His symptoms persist. His most bothering symptoms seem to be coughing and he is on scopolamine patch from today. He is also on Robitussin cough syrup. Based on examination, I believe he has a combination of probably possible ileus and also some gastroparesis. I could not hear any bowel sounds during examination. He is also not really complaining of GI symptoms. RECOMMENDATIONS: 1. Discontinue promethazine. 2. IV Reglan 10 mg q.8 h. 3. If symptoms really improve on Reglan, may have consider slowing down the narcotic intake. Job ID: [id number] [facility]
--- NOTE | 2019-01-17 12:02 | PRG ---
DATE OF SERVICE: 01/17/2019 SUBJECTIVE: Mr. Cruz is now seven days into his hospitalization for anterior-posterior decompression and fusion for cervical myelopathy. His postoperative course has been complicated by gastroparesis and ileus. We continue to work on this. He is on multiple medications to treat this and also multiple teams following him. We will continue to work hard to try and get this patient doing better. Job ID: [id number]
--- NOTE | 2019-01-17 13:14 | PRG ---
DATE OF SERVICE: 01/17/2019 SUBJECTIVE: This is a 58-year-old male hospitalized a week ago for a spinal surgery. He underwent spinal surgery and he is making slow but steady progress. He has been having nausea and poor appetite. He was started on IV Reglan yesterday. He is actually feeling better. He ate his full breakfast today, but he is not passing any more stool. He is passing small amount of gas. No abdominal pain. His nausea is somewhat better than before. PHYSICAL EXAMINATION: GENERAL: Appears comfortable. VITAL SIGNS: He is afebrile. Pulse is 70, blood pressure 146/89. CARDIOVASCULAR SYSTEM/LUNGS: Within normal limits. ABDOMEN: Soft. Abdomen is nontender. RECOMMENDATIONS: 1. Continue IV Reglan. 2. I agree with rectal suppositories to promote peristalsis. Job ID: [id number]
--- NOTE | 2019-01-17 18:16 | PDOC.PN ---
- Subjective Encounter Start Date: 01/17/19 Encounter Start Time: 13:45 Still not having BM's. Minimal gas. Was able to eat breakfast. Nausea is not too bad until he moves around more. Has been up with PT and walked. Pain is not too bad. - Objective Resuscitation Status - Order Detail: 01/11/19 08:26 Resuscitation Status Routine Resuscitation Status: FULL: Full Resuscitation Vital Signs & Weight: Vital Signs (12 hours) Temp Pulse Resp BP BP Pulse Ox 01/17/19 16:10 98.9 F 73 18 165/81 H 96 01/17/19 11:10 97.8 F 70 18 145/89 H 96 01/17/19 07:42 98.2 F 78 22 H 179/98 H 96 Weight Admit Weight 210 lb Weight 210 lb Most Recent Monitor Data Heart Rate from ECG 71 NIBP 129/90 NIBP BP-Mean 103 Respiration from ECG 17 SpO2 94 I&O: 01/16/19 01/17/19 01/18/19 06:59 06:59 06:59 Intake Total 2260 1290 940 Output Total 1350 2100 1050 Balance 910 -810 -110 Result Diagrams: 01/14/19 07:35 01/14/19 07:35 Additional Labs: Accuchecks 01/17/19 01/17/19 01/17/19 16:12 11:12 05:58 POC Glucose 123 H 97 94 01/16/19 20:49 POC Glucose 123 H Phys Exam - Physical Examination Constitutional: NAD Brace Respiratory: no wheezing, no rales, no rhonchi, clear to auscultation bilateral Cardiovascular: RRR, no significant murmur, no rub Gastrointestinal: soft, non-tender, no distention, positive bowel sounds Musculoskeletal: no edema Psychiatric: normal affect, A&O x 3 Dx/Plan (1) Cervical myelopathy with cervical radiculopathy Code(s): M47.12 - OTHER SPONDYLOSIS WITH MYELOPATHY, CERVICAL REGION Status: Chronic (2) Cervical stenosis of spinal canal Code(s): M48.02 - SPINAL STENOSIS, CERVICAL REGION Status: Chronic (3) Constipation Code(s): K59.00 - CONSTIPATION, UNSPECIFIED Status: Acute (4) Diabetes type 2, controlled Code(s): E11.9 - TYPE 2 DIABETES MELLITUS WITHOUT COMPLICATIONS Status: Chronic Comment: on insulin pump (5) Hypertension Code(s): I10 - ESSENTIAL (PRIMARY) HYPERTENSION Status: Chronic Comment: will hold BP meds for SBP <120 (6) Hypothyroidism Code(s): E03.9 - HYPOTHYROIDISM, UNSPECIFIED Status: Chronic (7) DKA (diabetic ketoacidoses) Code(s): E13.10 - OTH DIABETES MELLITUS WITH KETOACIDOSIS WITHOUT COMA Status : Resolved Qualifiers: Diabetes mellitus type: type 1 (8) Meatal stenosis Code(s): [id number] - Status: Acute (9) Acute urinary retention Code(s): R33.8 - OTHER RETENTION OF URINE Status: Acute (10) Dyslipidemia Code(s): E78.5 - HYPERLIPIDEMIA, UNSPECIFIED Status: Chronic (11) GERD (gastroesophageal reflux disease) Code(s): K21.9 - GASTRO-ESOPHAGEAL REFLUX DISEASE WITHOUT ESOPHAGITIS Status: Chronic - Plan * Continue to mobilize. * Has adequate bowel regimen. * BP looks better.
[2019-01-17] MEDS: Ramipril 5 MG CAP PO SCH (21:16)
[2019-01-17] MEDS: Atorvastatin Calcium 40 MG TAB PO SCH (21:16)
[2019-01-17] MEDS: Ondansetron PF 4 MG/2 ML Vial IVP PRN (22:41)
[2019-01-18] MEDS: Levothyroxine Sodium 112 MCG TAB PO SCH (05:28)
[2019-01-18] MEDS: Levothyroxine Sodium 25 MCG TAB PO SCH (05:28)
[2019-01-18] MEDS: Metoclopramide HCl 10 MG/2 ML VIAL IVP SCH ×3 (05:28→21:16)
[2019-01-18 05:51] LABS: #Eosinphils 0.3 thou/uL (0.0-0.7); #Monocytes 0.8 thou/uL (0.11-0.59); #Neutrophils 4.1 thou/uL (1.40-6.50); %Basophils 0.7 % (0.0-1.0); %Eosinophils 4.4 % (0.0-10.0); %Lymphocytes 15.6 % (21.0-51.0); %Monocytes 12.7 % (0.0-10.0); %Neutrophils 66.6 % (42.0-75.0); Hemoglobin 12.3 g/dL (14.0-18.0); Mean Corpuscular HGB CONC 32.2 g/dL (32.0-36.0); Mean Corpuscular Hemoglobin 31.2 pg (27.0-31.0); Mean Platelet Volume 6.9 fL (7.4-10.4); Platelet Count 324 thou/uL (130-400); RBC Distribution Width 11.9 % (11.5-14.5); Red Blood Cell (RBC) Count 3.93 mill/uL (4.70-6.10); White Blood Cell (WBC) Count 6.1 thou/uL (4.8-10.8)
[2019-01-18 06:14] LABS: Anion Gap 13 mmol/L (10-20); BUN (Urea Nitrogen) 15 mg/dL (8.4-25.7); Calc. Creatinine Clearance 129 mL/min (70-130); Calcium 8.9 mg/dL (7.8-10.44); Carbon Dioxide 24 mmol/L (22-29); Chloride 103 mmol/L (98-107); Estimated GFR-MDRD Greater than 90; Glucose 79 mg/dL (70-105); Potassium 3.9 mmol/L (3.5-5.1); Sodium 136 mmol/L (136-145)
[2019-01-18] MEDS ORDERED: Tamsulosin HCl 0.4 MG CAP PO SCH (09:00)
[2019-01-18] MEDS: Polyethylene Glycol 3350 17 GM Packet PO SCH (09:02)
[2019-01-18] MEDS: Bacitracin Zinc 1 Packet TOP SCH ×2 (09:02→21:16)
[2019-01-18] MEDS: Milk Of Magnesia 30 ML UDCUP PO SCH (09:03)
[2019-01-18] MEDS: Senokot S 8.6-50 MG TAB PO SCH ×2 (09:03→21:16)
[2019-01-18] MEDS: Bisacodyl 10 MG SUPP PR SCH ×2 (09:03→11:01)
[2019-01-18] MEDS: Acetaminophen 325 MG TAB PO PRN ×2 (11:04→18:50)
--- NOTE | 2019-01-18 15:37 | PRG ---
DATE OF SERVICE: 01/18/2019 Postoperative recheck, Mr. Cruz is now postoperative day #8, having undergone anterior-posterior cervical fusion. The patient really does look better today. His nausea is slightly improved with continued scopolamine patch and Reglan. He has been walking the halls. He remains with a Acosta catheter in place; although, I did discuss this case with Dr. Bartholomew with Urology. We will begin him on Flomax and hope for a voiding trial perhaps as early as tomorrow. He has still decreased appetite. I have discussed with both the patient and his any type of soft food he would like to have, they can bring into the hospital. I have also discussed the possibility of perhaps limiting some narcotics to help with his continued nausea and constipation, but again this is a fine balance that we must determine. I spent a long time counseling the patient and his . He is currently in postoperative recovery and he really is doing well, not to be discouraged. They are appreciative. We will follow up obviously with him tomorrow and appreciate other medical teams being involved in the patient's care. His blood glucose remains in good levels. I have also discussed with nursing care the fact that he may have his collar off when he is in bed or sitting in a chair, but when he is up walking, he needs to have this on. Please call with any changes in the patient's neurologic status. Job ID: [id number]
[2019-01-18] MEDS: Ondansetron PF 4 MG/2 ML Vial IVP PRN (18:51)
[2019-01-18 20:49] VITALS: TEMP 99
[2019-01-18] MEDS: Atorvastatin Calcium 40 MG TAB PO SCH (21:15)
[2019-01-18 21:16] VITALS: BP 159/96
[2019-01-18] MEDS: Ramipril 5 MG CAP PO SCH (21:16)
--- NOTE | 2019-01-21 08:11 | PRG ---
DATE OF SERVICE: 01/18/2019 SUBJECTIVE: This is a 58-year-old male, who had spine surgery almost 9 days ago. The patient is on pain medication. His nausea is better but not completely gone away; however, he is eating better. Off Dulcolax suppositories yesterday, he had one small stool and he has passed small amount of gas. No abdominal pain. He states he is making slow but steady progress. OBJECTIVE: GENERAL: Appears comfortable. VITAL SIGNS: Afebrile. Pulse is 74, blood pressure is 149/82. CARDIOVASCULAR SYSTEM/LUNGS: Within normal limits. ABDOMEN: Soft. Abdomen is nondistended. Abdomen is nontender. He has more active bowel sounds noted. IMPRESSION: Postoperative ileus with some gastroparesis. Since being on Reglan, he is feeling better, but the nausea is still present but less than before. RECOMMENDATIONS: 1. Continue Reglan. 2. Dulcolax suppositories daily to promote peristalsis. 3. Dr. Ivey is on-call for me and will be seeing the patient over the weekend. Job ID: [id number] [facility]
--- NOTE | 2019-01-21 08:59 | DIS ---
DATE OF ADMISSION: 01/10/2019 DATE OF DISCHARGE: 01/18/2019 DISCHARGE DIAGNOSES: 1. Cervical spinal stenosis with myelopathy. 2. Diabetes mellitus type 1. 3. Hypertension. 4. Gastroparesis secondary to diabetes. 5. Dyslipidemia. 6. Acute urinary retention. 7. Hypothyroidism. HOSPITAL COURSE: Mr. Cruz was admitted on 01/10/2019 to undergo staged procedure of ACDF and posterior cervical fusion. The patient's surgery was without complication, but he required several overnight stays to help with blood glucose control, pain management and nausea and constipation postoperatively. The patient was discharged to inpatient rehab to help with some overall conditioning. At the time of surgery, the patient's nausea had significantly improved and his constipation was also improved. Postoperative pain control had also greatly improved. At the time of discharge, appropriate patient education was provided and outpatient followup. The patient and his were pleased with his outcome postoperatively. Job ID: [id number]
== END 2019-01-18 20:35 | DRG 454 ==
LOC: SURG A 06:04 → SURG B 16:24 → IMCU/EMU 01-11 13:01 → SURG A 01-13 09:37
PROVIDERS: ADMIT Surgery; ATTEND Surgery
PROC: 0RG20A0 Fusion of 2 or more Cervical Vertebral Joints with Interbody Fusion Device, Anterior Approach, Anterior Column, Open Approach (ICD-10-PCS; principal; 2019-01-10)
PROC: 0RG1071 Fusion of Cervical Vertebral Joint with Autologous Tissue Substitute, Posterior Approach, Posterior Column, Open Approach (ICD-10-PCS; 2019-01-10)
PROC: 0RB30ZZ Excision of Cervical Vertebral Disc, Open Approach (ICD-10-PCS; 2019-01-10)
PROC: 0T7D7ZZ Dilation of Urethra, Via Natural or Artificial Opening (ICD-10-PCS; 2019-01-11)
DX: M48.02 Spinal stenosis, cervical region (principal); G99.2 Myelopathy in diseases classified elsewhere; E10.10 Type 1 diabetes mellitus with ketoacidosis without coma; N17.9 Acute kidney failure, unspecified; M54.12 Radiculopathy, cervical region; I10 Essential (primary) hypertension; E03.9 Hypothyroidism, unspecified; E10.43 Type 1 diabetes mellitus with diabetic autonomic (poly)neuropathy; K31.84 Gastroparesis; N35.911 Unspecified urethral stricture, male, meatal; R33.9 Retention of urine, unspecified; N99.89 Other postprocedural complications and disorders of genitourinary system; K59.00 Constipation, unspecified; E66.9 Obesity, unspecified; Z68.30 Body mass index [BMI] 30.0-30.9, adult; Z79.4 Long term (current) use of insulin; Z96.41 Presence of insulin pump (external) (internal); Z79.899 Other long term (current) drug therapy; Y83.1 Surgical operation with implant of artificial internal device as the cause of abnormal reaction of the patient, or of later complication, without mention of misadventure at the time of the procedure; Y92.239 Unspecified place in hospital as the place of occurrence of the external cause
CPT/HCPCS: 36415; 36416; 71045; 76000; 80048; 82010; 83605; 83735; 83880; 84100; 84484; 85025; 85379; 93005; 93010; 93970; C1713; C1768; C1776; J0360; J1815; J1885; J2001; J2250; J2270; J2370; J2405; J2550; J2704; J2765; J3010; J3370; J3490; J7050

== ENCOUNTER 2019-03-04 12:40 | Outpatient (CLI) | payer OTHER ==
--- NOTE | 2019-03-04 13:24 | RAD ---
CERVICAL SPINE SERIES 3 VIEWS: Date: 03/04/19 HISTORY: Postop. FINDINGS: Patient has undergone anterior cervical fusion with placement of plate and screws which extend from C 3 to C7. Markers of disc implants are within the intervening disc levels. There are also bilateral fa cet screws at these levels. Bones appear demineralized. IMPRESSION: Postoperative changes of the spine. POS: PEGGY
== END 2019-03-04 12:41 | disposition home or self-care (01) ==
LOC: TBSIIMAG 12:40
PROVIDERS: ATTEND Surgery
DX: M47.12 Other spondylosis with myelopathy, cervical region (principal); M50.00 Cervical disc disorder with myelopathy, unspecified cervical region; Z98.890 Other specified postprocedural states
CPT/HCPCS: 72040

== ENCOUNTER 2022-08-30 08:42 | Outpatient (CLI) | payer BC ==
[2022-08-30 10:33] LABS: Hemoglobin 14.7 g/dL (13.5-17.5); Mean Corpuscular HGB CONC 34.2 g/dL (32.0-36.0); Mean Corpuscular Hemoglobin 31.5 pg (27.0-33.0); Mean Corpuscular Volume 92.1 fl (81.2-95.1); Mean Platelet Volume 11.3 fl (7.4-10.4); Platelet Count 247 10x3/uL (150-450); RBC Distribution Width 12.2 % (11.5-14.5); Red Blood Cell (RBC) Count 4.67 10x6/uL (4.32-5.72); White Blood Cell (WBC) Count 4.8 10x3/uL (3.5-10.5)
[2022-08-30 10:36] LABS: INR-International Normal Ratio 1.1; PTT 25.9 sec (22.0-33.0); Prothrombin Time 11.9 sec (9.5-12.1)
[2022-08-30 10:47] LABS: Anion Gap 11 mmol/L (10-20); BUN (Urea Nitrogen) 17 mg/dL (8.4-25.7); Calc. Creatinine Clearance 0 mL/min (70-130); Calcium 9.4 mg/dL (7.8-10.44); Carbon Dioxide 27 mmol/L (23-31); Chloride 102 mmol/L (98-107); Estimated GFR 84; Glucose 180 mg/dL (80-115); Potassium 4.2 mmol/L (3.5-5.1); Sodium 136 mmol/L (136-145)
== END 2022-08-30 08:43 | disposition home or self-care (01) ==
LOC: LABBT 08:42
PROVIDERS: ATTEND Surgery
DX: Z01.818 Encounter for other preprocedural examination (principal); M54.16 Radiculopathy, lumbar region; M48.061 Spinal stenosis, lumbar region without neurogenic claudication; Z20.822 Contact with and (suspected) exposure to COVID-19
CPT/HCPCS: 80048; 85027; 85610; 85730; 87811; 93005; 93010

== ENCOUNTER 2022-09-02 06:06 | Inpatient (IN) | payer BC ==
[2022-08-31 15:43] VITALS: BMI 30.1
[2022-09-02] MEDS ORDERED: Midazolam HCl 2 mg/2 ml Vial ONE (06:40)
[2022-09-02] MEDS ORDERED: fentaNYL Citrate/PF 100 MCG/2 ML SYRINGE ONE (06:40)
[2022-09-02] MEDS ORDERED: SUGAMMADEX SODIUM 200 MG/2 ML VIAL ONE (06:41)
[2022-09-02] MEDS ORDERED: Thrombin 5000 UNITS/5 ML VIAL ONE ×3 (07:05→09:37)
[2022-09-02] MEDS ORDERED: CEFAZOLIN 2 GM VIAL ONE (07:31)
[2022-09-02] MEDS ORDERED: Sodium Chloride 0.9% 100 ML ONE (07:31)
[2022-09-02] MEDS ORDERED: PROPOFOL 200 MG/20 ML VIAL ONE (08:03)
[2022-09-02] MEDS ORDERED: Metoclopramide HCl 10 MG/2 ML VIAL ONE (08:03)
[2022-09-02] MEDS ORDERED: PHENYLEPHRINE-NS 100 MCG/ML 10 ML SYRINGE ONE ×2 (08:03→09:45)
[2022-09-02] MEDS ORDERED: ePHEDrine 50 MG/ML VIAL ONE (08:03)
[2022-09-02] MEDS ORDERED: Rocuronium Bromide 10 MG/ML (10ML VIAL) ONE (08:03)
[2022-09-02] MEDS ORDERED: Ketorolac Tromethamine 30 MG/ML VIAL ONE (08:03)
[2022-09-02] MEDS ORDERED: Ondansetron PF 4 MG/2 ML Vial ONE (08:03)
[2022-09-02] MEDS ORDERED: Insulin Regular 300 UNITS/3 ML VIAL ONE (08:52)
[2022-09-02] MEDS ORDERED: HYDROcodone/Acetaminophen 7.5/325 mg Tablet PO PRN (11:08)
[2022-09-02] MEDS ORDERED: diphenhydrAMINE 25 MG CAP PO PRN (11:08)
[2022-09-02] MEDS ORDERED: Ondansetron PF 4 MG/2 ML Vial IVP PRN (11:08)
[2022-09-02] MEDS ORDERED: traMADol HCl 50 MG TAB PO PRN (11:08)
[2022-09-02] MEDS ORDERED: Acetaminophen 325 MG TAB PO PRN (11:08)
[2022-09-02] MEDS ORDERED: Morphine 2 MG/ML VIAL SLOW IVP PRN (11:08)
[2022-09-02] MEDS ORDERED: Polyethylene Glycol 3350 17 GM Packet PO PRN (11:12)
[2022-09-02] MEDS ORDERED: Bisacodyl 5 MG TAB PO PRN (11:12)
[2022-09-02] MEDS ORDERED: hydrALAZINE 20 MG/ML VIAL SLOW IVP PRN (11:12)
[2022-09-02] MEDS ORDERED: Non-Formulary Item 1 EACH (Insulin Aspart [Novolog] 100 UNIT/ML Vial) SC SCH (11:15)
[2022-09-02] MEDS ORDERED: Fentanyl 100 MCG/2 ML VIAL ONE (11:21)
[2022-09-02] MEDS ORDERED: HYDROmorphone 0.5 MG/0.5 ML SYRINGE ONE (11:29)
[2022-09-02] MEDS ORDERED: Promethazine HCl 25 MG/ML VIAL ONE (11:57)
[2022-09-02] MEDS ORDERED: Ondansetron HCl/PF 4 MG/2 ML Vial IVP PRN (12:30)
[2022-09-02] MEDS ORDERED: HYDROmorphone 2 MG/ML VIAL SLOW IVP PRN (12:30)
[2022-09-02] MEDS ORDERED: Promethazine HCl 25 MG/ML VIAL IM/IV PRN (12:30)
[2022-09-02] MEDS: Sodium Chloride 0.9% 1,000 ML IV SCH (13:08)
[2022-09-02] MEDS: Acetaminophen/Codeine 30-300mg Tablet PO PRN ×3 (13:41→23:35)
[2022-09-02] MEDS: tiZANidine HCl 4 MG TAB PO PRN ×2 (13:42→21:28)
[2022-09-02] MEDS: CEFAZOLIN 2 GM in Sodium Chloride 0.9% 100 ML IVPB SCH ×2 (16:35→23:35)
[2022-09-02] MEDS: Ketorolac Tromethamine 30 MG/ML VIAL IVP PRN ×2 (17:32→23:34)
[2022-09-02] MEDS: oxyCODONE 5 MG TAB PO PRN (20:49)
[2022-09-02] MEDS: Ramipril 5 MG CAP PO SCH (20:50)
[2022-09-02] MEDS: Docusate 100 MG CAP PO SCH (20:50)
[2022-09-02] MEDS: Atorvastatin Calcium 40 MG TAB PO SCH (20:50)
[2022-09-03] MEDS: Sodium Chloride 0.9% 1,000 ML IV SCH ×2 (02:09→13:25)
[2022-09-03] MEDS: oxyCODONE 5 MG TAB PO PRN ×3 (03:07→21:01)
[2022-09-03] MEDS: Acetaminophen/Codeine 30-300mg Tablet PO PRN (05:23)
[2022-09-03] MEDS: tiZANidine HCl 4 MG TAB PO PRN ×3 (05:23→21:00)
[2022-09-03] MEDS: Ketorolac Tromethamine 30 MG/ML VIAL IVP PRN ×3 (05:24→21:09)
[2022-09-03 05:55] LABS: #Eosinphils 0.1 thou/uL (0.0-0.7); #Lymphocytes 1.1 thou/uL (1.20-3.40); #Neutrophils 8.5 thou/uL (1.40-6.50); %Basophils 0.3 % (0.0-1.0); %Eosinophils 1.1 % (0.0-10.0); %Lymphocytes 10.1 % (21.0-51.0); %Monocytes 9.1 % (0.0-10.0); %Neutrophils 79.4 % (42.0-75.0); Anion Gap 10 mmol/L (10-20); BUN (Urea Nitrogen) 22 mg/dL (8.4-25.7); Calc. Creatinine Clearance 94 mL/min (70-130); Calcium 8.2 mg/dL (7.8-10.44); Carbon Dioxide 26 mmol/L (23-31); Chloride 104 mmol/L (98-107); Estimated GFR 77; Glucose 166 mg/dL (80-115); Hemoglobin 11.6 g/dL (14.0-18.0); Mean Corpuscular HGB CONC 31.8 g/dL (32.0-36.0); Mean Corpuscular Hemoglobin 31.4 pg (27.0-31.0); Mean Corpuscular Volume 98.8 fL (78.0-98.0); Mean Platelet Volume 8.5 fL (7.4-10.4); Platelet Count 172 thou/uL (130-400); Potassium 4.2 mmol/L (3.5-5.1); RBC Distribution Width 11.7 % (11.5-14.5); Red Blood Cell (RBC) Count 3.68 mill/uL (4.70-6.10); Sodium 136 mmol/L (136-145); White Blood Cell (WBC) Count 10.7 thou/uL (4.8-10.8)
[2022-09-03] MEDS: Docusate 100 MG CAP PO SCH ×2 (09:12→21:01)
[2022-09-03] MEDS: Ramipril 5 MG CAP PO SCH (21:00)
[2022-09-03] MEDS: Atorvastatin Calcium 40 MG TAB PO SCH (21:00)
[2022-09-04] MEDS: Sodium Chloride 0.9% 1,000 ML IV SCH ×3 (01:40→18:05)
[2022-09-04] MEDS: Ketorolac Tromethamine 30 MG/ML VIAL IVP PRN (06:00)
[2022-09-04] MEDS: oxyCODONE 5 MG TAB PO PRN ×2 (06:00→20:45)
[2022-09-04] MEDS: Docusate 100 MG CAP PO SCH ×2 (09:02→20:46)
[2022-09-04 09:10] LABS: #Eosinphils 0.2 thou/uL (0.0-0.7); #Monocytes 1.1 thou/uL (0.11-0.59); #Neutrophils 7.4 thou/uL (1.40-6.50); %Basophils 0.3 % (0.0-1.0); %Eosinophils 2.5 % (0.0-10.0); %Lymphocytes 10.6 % (21.0-51.0); %Monocytes 11.1 % (0.0-10.0); %Neutrophils 75.5 % (42.0-75.0); Hemoglobin 11.4 g/dL (14.0-18.0); Mean Corpuscular HGB CONC 32.4 g/dL (32.0-36.0); Mean Corpuscular Hemoglobin 31.9 pg (27.0-31.0); Mean Corpuscular Volume 98.3 fL (78.0-98.0); Mean Platelet Volume 8.3 fL (7.4-10.4); Platelet Count 183 thou/uL (130-400); RBC Distribution Width 11.7 % (11.5-14.5); Red Blood Cell (RBC) Count 3.58 mill/uL (4.70-6.10); White Blood Cell (WBC) Count 9.8 thou/uL (4.8-10.8)
[2022-09-04 09:21] LABS: Anion Gap 12 mmol/L (10-20); BUN (Urea Nitrogen) 20 mg/dL (8.4-25.7); Calc. Creatinine Clearance 87 mL/min (70-130); Calcium 8.7 mg/dL (7.8-10.44); Carbon Dioxide 25 mmol/L (23-31); Chloride 102 mmol/L (98-107); Estimated GFR 70; Glucose 195 mg/dL (80-115); Potassium 3.8 mmol/L (3.5-5.1); Sodium 135 mmol/L (136-145)
[2022-09-04] MEDS: Cephalexin 250 MG CAP PO SCH ×3 (12:35→20:45)
[2022-09-04 13:49] LABS: Bilirubin Negative (Negative); Blood, Urine Trace (Negative); Clarity Clear (Clear); Glucose, Urine (Dipstick) 500 mg/dL (Negative); Ketone, Urine Negative (Negative); Leukocyte Negative Leu/uL (Negative); Nitrite Negative (Negative); Protein, Urine (Dipstick) 30 mg/dL (Neg-Trace); RBC/HPF 0-3 HPF (0-3); Specific Gravity, Urine 1.029 (1.002-1.036); Squamous Epithelial 0-3 HPF (0-3); Urobilinogen Normal mg/dL (Less than 2)
[2022-09-04 13:57] LABS: Bacteria/HPF Rare-Few HPF (None Seen); Mucous/LPF 2+ LPF (<2+)
[2022-09-04 13:58] LABS: Urine Culture Reflex Yes Yes
[2022-09-04] MEDS: Acetaminophen/Codeine 30-300mg Tablet PO PRN ×2 (18:13→22:25)
[2022-09-04] MEDS: tiZANidine HCl 4 MG TAB PO PRN (18:52)
[2022-09-04] MEDS: Atorvastatin Calcium 40 MG TAB PO SCH (20:45)
[2022-09-04] MEDS: Ramipril 5 MG CAP PO SCH (20:47)
[2022-09-05] MEDS: Sodium Chloride 0.9% 1,000 ML IV SCH (03:08)
[2022-09-05] MEDS: Cephalexin 250 MG CAP PO SCH ×2 (08:07→14:43)
[2022-09-05] MEDS: Docusate 100 MG CAP PO SCH (08:07)
[2022-09-05] MEDS: Acetaminophen/Codeine 30-300mg Tablet PO PRN ×2 (08:07→14:43)
[2022-09-05] MEDS: oxyCODONE 5 MG TAB PO PRN ×2 (08:07→14:43)
[2022-09-05 13:14] VITALS: BP 130/82; TEMP 99.2
== END 2022-09-05 18:00 | disposition home or self-care (01) | DRG 520 ==
LOC: SDC 06:06 → SURG A 11:15 → OBSVTOIN 09-05 09:15
PROVIDERS: ADMIT Surgery; ATTEND Surgery
PROC: 01NB0ZZ Release Lumbar Nerve, Open Approach (ICD-10-PCS; principal; 2022-09-02)
PROC: 00NY0ZZ Release Lumbar Spinal Cord, Open Approach (ICD-10-PCS; 2022-09-02)
DX: M48.062 Spinal stenosis, lumbar region with neurogenic claudication (principal); M54.16 Radiculopathy, lumbar region; Z20.822 Contact with and (suspected) exposure to COVID-19; Z79.82 Long term (current) use of aspirin
CPT/HCPCS: 36415; 36416; 71045; 76000; 80048; 81001; 85025; 87086; 96365; 96375; 96376; G0378; J0690; J1170; J1815; J1885; J2250; J2270; J2405; J2550; J2704; J2765; J3010; J3370; J3490

== ENCOUNTER 2023-01-16 10:50 | Outpatient (CLI) | payer BC | END 2023-01-16 10:51 | disposition home or self-care (01) | LOC: BICRAD 10:50 | PROVIDERS: ATTEND Surgery | DX: M54.50 Low back pain, unspecified (principal); M79.606 Pain in leg, unspecified; M47.816 Spondylosis without myelopathy or radiculopathy, lumbar region; M43.16 Spondylolisthesis, lumbar region; Z98.890 Other specified postprocedural states | CPT/HCPCS: 72100 ==

== ENCOUNTER 2023-01-19 06:32 | Day surgery (SDC) | payer BC ==
[2023-01-17 15:01] VITALS: BMI 30.1
[2023-01-19] MEDS ORDERED: Ondansetron PF 4 MG/2 ML Vial ONE (08:50)
[2023-01-19] MEDS ORDERED: PROPOFOL 200 MG/20 ML VIAL ONE (08:50)
== END 2023-01-19 09:50 | disposition home or self-care (01) ==
LOC: SDC 06:32
PROVIDERS: ATTEND Internal Medicine Gastroenterology
PROC: 0DB38ZX Excision of Lower Esophagus, Via Natural or Artificial Opening Endoscopic, Diagnostic (ICD-10-PCS; principal; 2023-01-19)
PROC: 0D758ZZ Dilation of Esophagus, Via Natural or Artificial Opening Endoscopic (ICD-10-PCS; principal; 2023-01-19)
PROC: 0DB68ZX Excision of Stomach, Via Natural or Artificial Opening Endoscopic, Diagnostic (ICD-10-PCS; principal; 2023-01-19)
DX: R13.19 Other dysphagia (principal); K21.00 Gastro-esophageal reflux disease with esophagitis, without bleeding; K29.70 Gastritis, unspecified, without bleeding; E10.9 Type 1 diabetes mellitus without complications; E78.00 Pure hypercholesterolemia, unspecified; I10 Essential (primary) hypertension; Z79.82 Long term (current) use of aspirin; Z79.890 Hormone replacement therapy; Z79.899 Other long term (current) drug therapy
CPT/HCPCS: 36416; 88305; J2405; J2704

== ENCOUNTER 2023-01-27 07:58 | Outpatient (CLI) | payer BC | END 2023-01-27 07:59 | disposition home or self-care (01) | LOC: TBSIIMAG 07:58 | PROVIDERS: ATTEND Surgery | DX: M54.50 Low back pain, unspecified (principal); M79.606 Pain in leg, unspecified; M47.816 Spondylosis without myelopathy or radiculopathy, lumbar region; M51.35 Other intervertebral disc degeneration, thoracolumbar region; M48.061 Spinal stenosis, lumbar region without neurogenic claudication; Z98.890 Other specified postprocedural states | CPT/HCPCS: 72148 ==

== ENCOUNTER 2023-02-28 12:23 | Outpatient (CLI) | payer BC | END 2023-02-28 12:24 | disposition home or self-care (01) | LOC: TBSIIMAG 12:23 | PROVIDERS: ATTEND Surgery | DX: M51.04 Intervertebral disc disorders with myelopathy, thoracic region (principal); R29.898 Other symptoms and signs involving the musculoskeletal system; M47.12 Other spondylosis with myelopathy, cervical region; I67.89 Other cerebrovascular disease; Z98.1 Arthrodesis status | CPT/HCPCS: 70553; 72040; 72141; 72146 ==

== ENCOUNTER 2023-12-07 14:58 | Inpatient (IN) | payer BC, MEDICARE ==
[~2023-12-07 14:58] MED LIST: Iopamidol-370 76% 500 ML MDV (1 ML CHARGE) ONE
[2023-12-07] MEDS ORDERED: Morphine 4 MG/ML VIAL ONE (15:46)
[2023-12-07] MEDS ORDERED: Ketorolac Tromethamine 30 MG (1 mL) VIAL ONE (15:47)
[2023-12-07 16:23] LABS: #Eosinphils 0.1 thou/uL (0.0-0.7); #Monocytes 0.7 thou/uL (0.11-0.59); #Neutrophils 11.6 thou/uL (1.40-6.50); %Basophils 0.2 % (0.0-1.0); %Eosinophils 0.4 % (0.0-10.0); %Lymphocytes 4.9 % (21.0-51.0); %Monocytes 5.5 % (0.0-10.0); %Neutrophils 88.4 % (42.0-75.0); Hematocrit 41.3 % (42.0-52.0); Hemoglobin 13.6 g/dL (14.0-18.0); Mean Corpuscular HGB CONC 32.9 g/dL (32.0-36.0); Mean Corpuscular Hemoglobin 30.8 pg (27.0-31.0); Mean Corpuscular Volume 93.7 fl (78.0-98.0); Mean Platelet Volume 9.7 fL (7.4-10.4); Platelet Count 219 10x3/uL (130-400); RBC Distribution Width 12.6 % (11.5-14.5); Red Blood Cell (RBC) Count 4.41 mill/uL (4.70-6.10); White Blood Cell (WBC) Count 13.2 10x3/uL (4.8-10.8)
[2023-12-07 16:46] LABS: ALT (SGPT) 32 U/L (8-55); AST (SGOT) 42 U/L (5-34); Albumin 4.1 g/dL (3.4-4.8); Alkaline Phosphatase 106 U/L (40-110); Anion Gap 15 mmol/L (10-20); BUN (Urea Nitrogen) 16 mg/dL (8.4-25.7); Bilirubin, Total 0.3 mg/dL (0.2-1.2); Calc. Creatinine Clearance 0 mL/min (70-130); Calcium 9.2 mg/dL (7.8-10.44); Carbon Dioxide 21 mmol/L (23-31); Chloride 108 mmol/L (98-107); Estimated GFR 75; Globulin 2.5 g/dL (2.4-3.5); Glucose 93 mg/dL (80-115); Potassium 3.9 mmol/L (3.5-5.1); Protein, Total 6.6 g/dL (5.8-8.1); Sodium 140 mmol/L (136-145)
[2023-12-07] MEDS ORDERED: Ketamine In 0.9 % NaCl 50 MG/5 ML SYRINGE ONE (16:46)
[2023-12-07] MEDS ORDERED: Dextrose 50% Abboject 50 ML SYRINGE SLOW IVP PRN (16:56)
[2023-12-07] MEDS ORDERED: TETANUS, DIPHTHERIA TOX,ADULT (TDVAX) 0.5 ML VIAL IM ONE (16:56)
[2023-12-07] MEDS ORDERED: Dextrose 5% in Water 1,000 ML IV PRN (16:56)
[2023-12-07] MEDS ORDERED: Ondansetron PF 4 MG/2 ML Vial IVP PRN (16:56)
[2023-12-07] MEDS ORDERED: Glucagon 1 MG/ML KIT IM PRN (16:56)
[2023-12-07] MEDS ORDERED: Morphine 4 MG/ML VIAL SLOW IVP PRN (16:56)
[2023-12-07] MEDS ORDERED: Rib Fracture Protocol IV SCH (17:00)
[2023-12-07 18:03] LABS: INR-International Normal Ratio 1.1; PTT 23.9 sec (22.9-36.1); Prothrombin Time 14.7 sec (12.0-14.7)
[2023-12-07] MEDS: Ipratropium/Albuterol 3 ML NEB NEB SCH (19:00)
[2023-12-07] MEDS: Ketorolac Tromethamine 30 MG (1 mL) VIAL IVP SCH (20:08)
[2023-12-07] MEDS: Cyclobenzaprine 10 MG TAB PO PRN (20:09)
[2023-12-07] MEDS: traMADol HCl 50 MG TAB PO PRN (20:14)
[2023-12-07] MEDS: Acetaminophen 650 MG Suppository PR SCH (20:15)
[2023-12-07 20:21] VITALS: BMI 30.7
[2023-12-07] MEDS ORDERED: hydrALAZINE 20 MG/ML VIAL SLOW IVP PRN (20:39)
[2023-12-07] MEDS: Ramipril 5 MG CAP PO SCH (20:48)
[2023-12-07] MEDS ORDERED: Enoxaparin 30 MG (0.3 mL) SYRINGE SC SCH (21:00)
[2023-12-07] MEDS ORDERED: HumaLOG 300 UNITS/3 ML VIAL SC PRN ×2 (22:19)
[2023-12-07] MEDS ORDERED: Carbidopa/Levodopa 25-100 mg Tablet PO SCH (23:30)
[2023-12-08] MEDS: Triple Antibiotic Oint 1 GM Packet TOP PRN ×2 (00:01→10:16)
[2023-12-08] MEDS: Acetaminophen 325 MG TAB PO PRN ×4 (00:02→23:38)
[2023-12-08] MEDS: Ipratropium/Albuterol 3 ML NEB NEB SCH ×5 (00:09→23:14)
[2023-12-08] MEDS ORDERED: Carbidopa/Levodopa 25-100 mg Tablet PO SCH (01:00)
[2023-12-08] MEDS ORDERED: Ketorolac Tromethamine 30 MG (1 mL) VIAL IVP SCH (01:00)
[2023-12-08] MEDS: Acetaminophen 650 MG Suppository PR SCH ×5 (02:36→23:32)
[2023-12-08] MEDS: Ketorolac Tromethamine 30 MG (1 mL) VIAL IVP SCH ×4 (03:42→21:06)
[2023-12-08 05:09] LABS: #Eosinphils 0.2 thou/uL (0.0-0.7); #Monocytes 0.8 thou/uL (0.11-0.59); #Neutrophils 6.4 thou/uL (1.40-6.50); %Basophils 0.5 % (0.0-1.0); %Lymphocytes 13.3 % (21.0-51.0); %Monocytes 9.7 % (0.0-10.0); %Neutrophils 74.2 % (42.0-75.0); Hematocrit 39.8 % (42.0-52.0); Hemoglobin 12.8 g/dL (14.0-18.0); Mean Corpuscular HGB CONC 32.2 g/dL (32.0-36.0); Mean Corpuscular Hemoglobin 30.3 pg (27.0-31.0); Mean Corpuscular Volume 94.3 fl (78.0-98.0); Mean Platelet Volume 9.9 fL (7.4-10.4); Platelet Count 227 10x3/uL (130-400); RBC Distribution Width 12.9 % (11.5-14.5); Red Blood Cell (RBC) Count 4.22 mill/uL (4.70-6.10); White Blood Cell (WBC) Count 8.7 10x3/uL (4.8-10.8)
[2023-12-08 05:28] LABS: ALT (SGPT) 25 U/L (8-55); AST (SGOT) 32 U/L (5-34); Albumin 3.7 g/dL (3.4-4.8); Alkaline Phosphatase 94 U/L (40-110); Anion Gap 11 mmol/L (10-20); BUN (Urea Nitrogen) 20 mg/dL (8.4-25.7); Bilirubin, Total 0.4 mg/dL (0.2-1.2); Calc. Creatinine Clearance 85 mL/min (70-130); Calcium 8.8 mg/dL (7.8-10.44); Carbon Dioxide 27 mmol/L (23-31); Chloride 106 mmol/L (98-107); Estimated GFR 68; Globulin 2.2 g/dL (2.4-3.5); Glucose 145 mg/dL (80-115); Potassium 3.9 mmol/L (3.5-5.1); Protein, Total 5.9 g/dL (5.8-8.1); Sodium 140 mmol/L (136-145)
[2023-12-08] MEDS: Cyclobenzaprine 10 MG TAB PO PRN ×3 (05:48→21:05)
[2023-12-08] MEDS: Levothyroxine 150 MCG TAB PO SCH (05:48)
[2023-12-08] MEDS: Senokot S 8.6-50 MG TAB PO SCH ×2 (09:55→21:01)
[2023-12-08] MEDS: Carbidopa/Levodopa 25-100 mg Tablet PO SCH ×3 (09:55→21:05)
[2023-12-08] MEDS: traMADol HCl 50 MG TAB PO PRN ×3 (10:14→23:38)
[2023-12-08] MEDS: Atorvastatin Calcium 40 MG TAB PO SCH (21:05)
[2023-12-08] MEDS: Ramipril 5 MG CAP PO SCH (21:05)
[2023-12-08] MEDS: Enoxaparin 40 MG (0.4 mL) SYRINGE SC SCH (21:19)
[2023-12-09] MEDS: Ketorolac Tromethamine 30 MG (1 mL) VIAL IVP SCH ×3 (02:42→18:07)
[2023-12-09] MEDS: Levothyroxine 150 MCG TAB PO SCH (05:39)
[2023-12-09] MEDS: Acetaminophen 325 MG TAB PO PRN ×3 (05:39→18:06)
[2023-12-09] MEDS: Cyclobenzaprine 10 MG TAB PO PRN (05:39)
[2023-12-09] MEDS: Acetaminophen 650 MG Suppository PR SCH ×3 (05:47→18:07)
[2023-12-09] MEDS: Ipratropium/Albuterol 3 ML NEB NEB SCH ×2 (07:35→14:08)
[2023-12-09] MEDS: Senokot S 8.6-50 MG TAB PO SCH ×2 (09:25→20:08)
[2023-12-09] MEDS: Carbidopa/Levodopa 25-100 mg Tablet PO SCH ×3 (09:26→20:07)
[2023-12-09] MEDS: Polyethylene Glycol 3350 17 GM Packet PO SCH (09:26)
[2023-12-09] MEDS: Triple Antibiotic Oint 1 GM Packet TOP PRN ×2 (09:26→20:12)
[2023-12-09] MEDS: traMADol HCl 50 MG TAB PO PRN ×2 (09:28→20:07)
[2023-12-09] MEDS ORDERED: Methocarbamol 500 MG TAB PO PRN (12:10)
[2023-12-09] MEDS ORDERED: Gabapentin 100 MG CAP PO SCH (12:30)
[2023-12-09] MEDS: Lidocaine 4% Patch TD SCH (13:41)
[2023-12-09] MEDS: Ipratropium/Albuterol 3 ML NEB NEB PRN (20:06)
[2023-12-09] MEDS: Atorvastatin Calcium 40 MG TAB PO SCH (20:06)
[2023-12-09] MEDS: Ramipril 5 MG CAP PO SCH (20:07)
[2023-12-09] MEDS: Methocarbamol 500 MG TAB PO SCH (20:08)
[2023-12-09] MEDS: Gabapentin 100 MG CAP PO SCH (20:09)
[2023-12-09] MEDS: Enoxaparin 40 MG (0.4 mL) SYRINGE SC SCH (22:54)
[2023-12-10] MEDS: Ketorolac Tromethamine 30 MG (1 mL) VIAL IVP SCH ×3 (00:32→06:18)
[2023-12-10] MEDS: Acetaminophen 325 MG TAB PO PRN ×2 (00:33→12:48)
[2023-12-10] MEDS: traMADol HCl 50 MG TAB PO PRN ×2 (02:01→09:13)
[2023-12-10] MEDS: Ipratropium/Albuterol 3 ML NEB NEB PRN (02:02)
[2023-12-10] MEDS: Acetaminophen 650 MG Suppository PR SCH ×5 (03:20→23:14)
[2023-12-10] MEDS: Transdermal Patch Removal TOP SCH (03:21)
[2023-12-10] MEDS: Levothyroxine 150 MCG TAB PO SCH (06:17)
[2023-12-10 08:01] LABS: #Eosinphils 0.3 thou/uL (0.0-0.7); #Monocytes 0.7 thou/uL (0.11-0.59); #Neutrophils 4.4 thou/uL (1.40-6.50); %Basophils 0.6 % (0.0-1.0); %Lymphocytes 16.7 % (21.0-51.0); %Monocytes 10.9 % (0.0-10.0); %Neutrophils 67.3 % (42.0-75.0); Hematocrit 40.4 % (42.0-52.0); Hemoglobin 12.7 g/dL (14.0-18.0); Mean Corpuscular HGB CONC 31.4 g/dL (32.0-36.0); Mean Corpuscular Hemoglobin 30.8 pg (27.0-31.0); Mean Corpuscular Volume 98.1 fl (78.0-98.0); Mean Platelet Volume 10.2 fL (7.4-10.4); Platelet Count 221 10x3/uL (130-400); RBC Distribution Width 13.1 % (11.5-14.5); Red Blood Cell (RBC) Count 4.12 mill/uL (4.70-6.10); White Blood Cell (WBC) Count 6.5 10x3/uL (4.8-10.8)
[2023-12-10 08:20] LABS: Anion Gap 15 mmol/L (10-20); BUN (Urea Nitrogen) 30 mg/dL (8.4-25.7); Calc. Creatinine Clearance 74 mL/min (70-130); Calcium 9.1 mg/dL (7.8-10.44); Carbon Dioxide 29 mmol/L (23-31); Chloride 100 mmol/L (98-107); Estimated GFR 57; Glucose 84 mg/dL (80-115); Sodium 140 mmol/L (136-145)
[2023-12-10] MEDS: Triple Antibiotic Oint 1 GM Packet TOP PRN (09:12)
[2023-12-10] MEDS: Carbidopa/Levodopa 25-100 mg Tablet PO SCH ×3 (09:12→19:49)
[2023-12-10] MEDS: Methocarbamol 500 MG TAB PO SCH ×4 (09:12→19:48)
[2023-12-10] MEDS: Polyethylene Glycol 3350 17 GM Packet PO SCH (09:12)
[2023-12-10] MEDS: Senokot S 8.6-50 MG TAB PO SCH ×2 (09:12→19:49)
[2023-12-10] MEDS: Gabapentin 100 MG CAP PO SCH ×2 (09:13→19:49)
[2023-12-10] MEDS: Lactated Ringer's 1,000 ML IV SCH ×2 (09:14→19:48)
[2023-12-10] MEDS: Lidocaine 4% Patch TD SCH (12:50)
[2023-12-10] MEDS ORDERED: Gabapentin 100 MG CAP PO SCH (14:15)
[2023-12-10] MEDS ORDERED: Mineral Oil ENEMA PR SCH (14:15)
[2023-12-10] MEDS: HYDROcodone/Acetaminophen 10/325 mg Tablet PO PRN ×2 (15:40→19:48)
[2023-12-10] MEDS: Atorvastatin Calcium 40 MG TAB PO SCH (19:48)
[2023-12-10] MEDS: Ramipril 5 MG CAP PO SCH (19:49)
[2023-12-10] MEDS: Enoxaparin 40 MG (0.4 mL) SYRINGE SC SCH (19:49)
[2023-12-11] MEDS: Transdermal Patch Removal TOP SCH (00:10)
[2023-12-11] MEDS: HYDROcodone/Acetaminophen 10/325 mg Tablet PO PRN ×3 (01:27→19:43)
[2023-12-11] MEDS: Acetaminophen 650 MG Suppository PR SCH ×5 (04:50→22:54)
[2023-12-11 05:43] LABS: #Eosinphils 0.3 thou/uL (0.0-0.7); #Monocytes 0.7 thou/uL (0.11-0.59); #Neutrophils 4.5 thou/uL (1.40-6.50); %Basophils 0.6 % (0.0-1.0); %Eosinophils 4.5 % (0.0-10.0); %Lymphocytes 13.7 % (21.0-51.0); %Neutrophils 69.9 % (42.0-75.0); Hematocrit 37.8 % (42.0-52.0); Hemoglobin 12.1 g/dL (14.0-18.0); Mean Corpuscular Hemoglobin 30.9 pg (27.0-31.0); Mean Corpuscular Volume 96.4 fl (78.0-98.0); Mean Platelet Volume 10.1 fL (7.4-10.4); Platelet Count 213 10x3/uL (130-400); RBC Distribution Width 13.2 % (11.5-14.5); Red Blood Cell (RBC) Count 3.92 mill/uL (4.70-6.10); White Blood Cell (WBC) Count 6.4 10x3/uL (4.8-10.8)
[2023-12-11 06:07] LABS: Anion Gap 10 mmol/L (10-20); BUN (Urea Nitrogen) 31 mg/dL (8.4-25.7); Calc. Creatinine Clearance 108 mL/min (70-130); Calcium 8.9 mg/dL (7.8-10.44); Carbon Dioxide 27 mmol/L (23-31); Chloride 102 mmol/L (98-107); Estimated GFR 90; Glucose 96 mg/dL (80-115); Sodium 135 mmol/L (136-145)
[2023-12-11] MEDS: Levothyroxine 150 MCG TAB PO SCH (06:40)
[2023-12-11] MEDS: Polyethylene Glycol 3350 17 GM Packet PO SCH (08:32)
[2023-12-11] MEDS: Gabapentin 100 MG CAP PO SCH ×3 (08:32→19:40)
[2023-12-11] MEDS: Carbidopa/Levodopa 25-100 mg Tablet PO SCH ×3 (08:32→19:40)
[2023-12-11] MEDS: Senokot S 8.6-50 MG TAB PO SCH ×2 (08:32→19:40)
[2023-12-11] MEDS: Methocarbamol 500 MG TAB PO SCH ×4 (08:34→19:40)
[2023-12-11] MEDS ORDERED: Mineral Oil ENEMA PR SCH (11:00)
[2023-12-11] MEDS: Lidocaine 4% Patch TD SCH (12:02)
[2023-12-11] MEDS: Acetaminophen 325 MG TAB PO PRN ×2 (12:02→16:57)
[2023-12-11] MEDS: Atorvastatin Calcium 40 MG TAB PO SCH (19:40)
[2023-12-11] MEDS: Ramipril 5 MG CAP PO SCH (19:40)
[2023-12-11] MEDS: Enoxaparin 40 MG (0.4 mL) SYRINGE SC SCH (20:59)
[2023-12-12] MEDS: Transdermal Patch Removal TOP SCH (00:07)
[2023-12-12] MEDS: HYDROcodone/Acetaminophen 10/325 mg Tablet PO PRN ×4 (01:18→13:59)
[2023-12-12 04:50] LABS: #Basophils 0.1 thou/uL (0.0-0.2); #Eosinphils 0.3 thou/uL (0.0-0.7); #Monocytes 0.7 thou/uL (0.11-0.59); #Neutrophils 4.5 thou/uL (1.40-6.50); %Basophils 0.9 % (0.0-1.0); %Eosinophils 3.7 % (0.0-10.0); %Lymphocytes 17.5 % (21.0-51.0); %Monocytes 10.2 % (0.0-10.0); %Neutrophils 67.3 % (42.0-75.0); Hematocrit 39.6 % (42.0-52.0); Hemoglobin 12.6 g/dL (14.0-18.0); Mean Corpuscular HGB CONC 31.8 g/dL (32.0-36.0); Mean Corpuscular Hemoglobin 30.5 pg (27.0-31.0); Mean Corpuscular Volume 95.9 fl (78.0-98.0); Mean Platelet Volume 10.3 fL (7.4-10.4); Platelet Count 217 10x3/uL (130-400); RBC Distribution Width 13.2 % (11.5-14.5); Red Blood Cell (RBC) Count 4.13 mill/uL (4.70-6.10); White Blood Cell (WBC) Count 6.7 10x3/uL (4.8-10.8)
[2023-12-12] MEDS: Levothyroxine 150 MCG TAB PO SCH (04:56)
[2023-12-12 05:07] LABS: Anion Gap 12 mmol/L (10-20); BUN (Urea Nitrogen) 24 mg/dL (8.4-25.7); Calc. Creatinine Clearance 103 mL/min (70-130); Calcium 8.7 mg/dL (7.8-10.44); Carbon Dioxide 28 mmol/L (23-31); Chloride 103 mmol/L (98-107); Estimated GFR 86; Glucose 95 mg/dL (80-115); Sodium 139 mmol/L (136-145)
[2023-12-12] MEDS: Gabapentin 100 MG CAP PO SCH (08:17)
[2023-12-12] MEDS: Carbidopa/Levodopa 25-100 mg Tablet PO SCH (08:17)
[2023-12-12] MEDS: Methocarbamol 500 MG TAB PO SCH ×2 (08:17→12:28)
[2023-12-12] MEDS: Polyethylene Glycol 3350 17 GM Packet PO SCH (08:18)
[2023-12-12] MEDS: Senokot S 8.6-50 MG TAB PO SCH (08:19)
[2023-12-12] MEDS ORDERED: Lactulose 20 GM (30 mL) UDCUP PO SCH ×3 (11:00→21:00)
[2023-12-12] MEDS: Acetaminophen 650 MG Suppository PR SCH (11:03)
[2023-12-12 11:35] VITALS: BP 132/84; TEMP 98.2
[2023-12-12] MEDS ORDERED: Bisacodyl 10 MG SUPP PR SCH (12:15)
[2023-12-12] MEDS: Lidocaine 4% Patch TD SCH (12:31)
== END 2023-12-12 15:00 | disposition home or self-care (01) | DRG 184 ==
LOC: ERS 14:58 → INTOOBSV 16:52 → SURG A 16:52 → OBSVTOIN 12-10 15:12
PROVIDERS: ADMIT Surgery; ATTEND Hospitalist
DX: S22.42XA Multiple fractures of ribs, left side, initial encounter for closed fracture (principal); G91.9 Hydrocephalus, unspecified; E10.9 Type 1 diabetes mellitus without complications; G20.A1 Parkinson's disease without dyskinesia, without mention of fluctuations; I10 Essential (primary) hypertension; E78.5 Hyperlipidemia, unspecified; K21.00 Gastro-esophageal reflux disease with esophagitis, without bleeding; E03.9 Hypothyroidism, unspecified; W18.30XA Fall on same level, unspecified, initial encounter; M62.838 Other muscle spasm; G89.11 Acute pain due to trauma; G47.33 Obstructive sleep apnea (adult) (pediatric); Z98.890 Other specified postprocedural states; Z79.4 Long term (current) use of insulin; Z98.1 Arthrodesis status; Z82.49 Family history of ischemic heart disease and other diseases of the circulatory system
CPT/HCPCS: 36415; 36416; 70450; 71045; 71260; 72125; 74177; 80048; 80053; 84145; 85025; 85610; 85730; 86850; 86900; 86901; 94640; 96372; 96374; 96375; 96376; G0378; G0390; J1650; J1885; J2270; J3490; J7120; J7620; Q9967

== ENCOUNTER 2023-12-13 18:49 | Emergency (ER) | payer MEDICARE ==
[2023-12-13] MEDS ORDERED: HYDROcodone/Acetaminophen 5/325 mg Tablet ONE (20:30)
[2023-12-13] MEDS ORDERED: Lactulose 20 GM (30 mL) UDCUP ONE (20:31)
[2023-12-13] MEDS ORDERED: Ketorolac Tromethamine 30 MG (1 mL) VIAL ONE (20:32)
== END 2023-12-13 20:57 | disposition home or self-care (01) ==
LOC: ERS 18:49
DX: S22.32XA Fracture of one rib, left side, initial encounter for closed fracture (principal); E10.9 Type 1 diabetes mellitus without complications; E03.9 Hypothyroidism, unspecified; K21.9 Gastro-esophageal reflux disease without esophagitis; E78.00 Pure hypercholesterolemia, unspecified; W19.XXXA Unspecified fall, initial encounter; Z79.82 Long term (current) use of aspirin; Z79.899 Other long term (current) drug therapy
CPT/HCPCS: 96372; 99283; J1885

== ENCOUNTER 2023-12-25 12:20 | Outpatient (CLI) | payer MEDICARE ==
[2023-12-25 13:35] LABS: Hematocrit 39.8 % (38.8-50.0); Hemoglobin 13.2 g/dL (13.5-17.5); Mean Corpuscular HGB CONC 33.2 g/dL (32.0-36.0); Mean Corpuscular Volume 93.4 fl (81.2-95.1); Mean Platelet Volume 9.8 fl (7.4-10.4); Platelet Count 372 10x3/uL (150-450); RBC Distribution Width 13.1 % (11.5-14.5); Red Blood Cell (RBC) Count 4.26 10x6/uL (4.32-5.72); White Blood Cell (WBC) Count 6.7 10x3/uL (3.5-10.5)
[2023-12-25 13:47] LABS: Anion Gap 12 mmol/L (10-20); BUN (Urea Nitrogen) 15 mg/dL (8.4-25.7); Calc. Creatinine Clearance 0 mL/min (70-130); Calcium 9.2 mg/dL (7.8-10.44); Carbon Dioxide 27 mmol/L (23-31); Chloride 105 mmol/L (98-107); Estimated GFR 79; Glucose 140 mg/dL (80-115); Sodium 139 mmol/L (136-145)
[2023-12-25 14:06] LABS: INR-International Normal Ratio 1.1; PTT 26.5 sec (22.0-33.0); Prothrombin Time 11.9 sec (9.5-12.1)
== END 2023-12-25 12:21 | disposition home or self-care (01) ==
LOC: LABBT 12:20
PROVIDERS: ATTEND Surgery
DX: Z01.818 Encounter for other preprocedural examination (principal); G91.2 (Idiopathic) normal pressure hydrocephalus
CPT/HCPCS: 80048; 85027; 85610; 85730; 93005; 93010

== ENCOUNTER 2023-12-25 12:30 | Inpatient (IN) | payer MEDICARE ==
[2023-12-28] MEDS ORDERED: Bupivacaine 0.25% HCL 30 ML VIAL ONE (06:15)
[2023-12-28] MEDS ORDERED: Vancomycin 1 GM VIAL ONE (06:15)
[2023-12-28] MEDS ORDERED: EPINEPHrine 1 MG/ML VIAL ONE (06:15)
[2023-12-28] MEDS ORDERED: Bacitracin Zinc Ointment 30 gm TUBE ONE (06:16)
[2023-12-28] MEDS ORDERED: CEFAZOLIN 2 GM VIAL ONE (07:07)
[2023-12-28] MEDS ORDERED: Sodium Chloride 0.9% 100 ML ONE (07:07)
[2023-12-28] MEDS ORDERED: SUCCINYLCHOLINE/SOD CL,ISO/PF 200 MG/10 ML SYRINGE FS ONE (07:32)
[2023-12-28] MEDS ORDERED: Non-Formulary Item 1 EACH (Lactulose 10 Gm/15ml Oral Sol 10 GM/15 ML Ml) PO PRN (08:29)
[2023-12-28] MEDS ORDERED: Non-Formulary Item 1 EACH (Insulin Aspart [Novolog] 100 UNIT/ML Vial) SQ SCH (08:30)
[2023-12-28] MEDS ORDERED: Lactulose 20 GM (30 mL) UDCUP PO PRN (08:58)
[2023-12-28] MEDS ORDERED: Non-Formulary Item 1 EACH (Lansoprazole [Lansoprazole] 30 MG Capsule.Dr) PO SCH (09:00)
[2023-12-28] MEDS ORDERED: fentaNYL PF 100 MCG/2 ML SYRINGE ONE (09:14)
[2023-12-28] MEDS ORDERED: Ondansetron PF 4 MG/2 ML Vial ONE (09:14)
[2023-12-28] MEDS ORDERED: Labetalol HCl 100 MG/20 ML VIAL ONE (09:23)
[2023-12-28] MEDS ORDERED: HYDROmorphone 0.5 MG/0.5 ML SYRINGE ONE ×2 (09:41→10:01)
[2023-12-28] MEDS ORDERED: fentaNYL 50 mcg/mL 1 mL Vial ONE (11:39)
[2023-12-28] MEDS: Sodium Chloride 0.9% 1,000 ML IV SCH (12:21)
[2023-12-28 12:24] VITALS: BMI 31.8
[2023-12-28] MEDS: Levothyroxine 150 MCG TAB PO SCH (12:36)
[2023-12-28] MEDS: Carbidopa/Levodopa 25-100 mg Tablet PO SCH (12:37)
[2023-12-28] MEDS: hydrALAZINE 20 MG/ML VIAL SLOW IVP PRN (12:49)
[2023-12-28] MEDS ORDERED: Promethazine HCl 12.5 MG in Sodium Chloride 0.9% 50 ML IVPB PRN (13:28)
[2023-12-28] MEDS: CEFAZOLIN 2 GM in Sodium Chloride 0.9% 100 ML IVPB SCH (13:35)
[2023-12-28] MEDS: Promethazine 25 MG TAB PO PRN (14:20)
[2023-12-28] MEDS: Scopolamine 1 mg/72 hour Patch TD PRN (14:20)
[2023-12-28] MEDS: Morphine 2 MG/ML VIAL SLOW IVP PRN (14:27)
[2023-12-28] MEDS: Ondansetron PF 4 MG/2 ML Vial IVP PRN (14:33)
[2023-12-28] MEDS ORDERED: Prochlorperazine 10 MG/2 ML VIAL IM PRN (16:04)
[2023-12-28] MEDS: Ondansetron PF 4 MG/2 ML Vial IVP SCH (16:18)
[2023-12-28] MEDS: Morphine 4 MG/ML VIAL SLOW IVP SCH (16:18)
[2023-12-28] MEDS: Labetalol HCl 100 MG/20 ML VIAL SLOW IVP PRN (16:39)
[2023-12-28] MEDS: Dexamethasone 4 mg/ml Vial SLOW IVP SCH (16:56)
[2023-12-28] MEDS: tiZANidine HCl 4 MG TAB PO PRN (19:49)
[2023-12-28] MEDS: Atorvastatin Calcium 40 MG TAB PO SCH (20:43)
[2023-12-28] MEDS: Ramipril 5 MG CAP PO SCH (20:43)
[2023-12-28] MEDS: HYDROcodone/Acetaminophen 5/325 mg Tablet PO PRN (20:48)
[2023-12-28] MEDS ORDERED: Non-Formulary Item 1 EACH (Atorvastatin Calcium [Atorvastatin Calcium] 80 MG Tablet) PO SCH (21:00)
[2023-12-29] MEDS: Acetaminophen/Codeine 30-300mg Tablet PO PRN (04:46)
[2023-12-29] MEDS: Levothyroxine 150 MCG TAB PO SCH (05:09)
[2023-12-29] MEDS: Docusate 100 MG CAP PO PRN (05:12)
[2023-12-29 06:32] LABS: #Eosinphils 0.1 thou/uL (0.0-0.7); #Monocytes 0.6 thou/uL (0.11-0.59); #Neutrophils 7.1 thou/uL (1.40-6.50); %Basophils 0.1 % (0.0-1.0); %Eosinophils 0.6 % (0.0-10.0); %Lymphocytes 9.2 % (21.0-51.0); %Monocytes 6.8 % (0.0-10.0); %Neutrophils 82.9 % (42.0-75.0); Hematocrit 38.4 % (42.0-52.0); Hemoglobin 12.4 g/dL (14.0-18.0); Mean Corpuscular HGB CONC 32.3 g/dL (32.0-36.0); Mean Corpuscular Hemoglobin 31.2 pg (27.0-31.0); Mean Corpuscular Volume 96.5 fl (78.0-98.0); Mean Platelet Volume 10.1 fL (7.4-10.4); Platelet Count 363 10x3/uL (130-400); RBC Distribution Width 13.3 % (11.5-14.5); Red Blood Cell (RBC) Count 3.98 mill/uL (4.70-6.10); White Blood Cell (WBC) Count 8.6 10x3/uL (4.8-10.8)
[2023-12-29] MEDS ORDERED: fentaNYL PF 100 MCG/2 ML SYRINGE ONE ×2 (06:37→08:23)
[2023-12-29] MEDS ORDERED: PROPOFOL 20 ML ONE (06:37)
[2023-12-29] MEDS ORDERED: diphenhydrAMINE 50 MG/ML VIAL ONE (06:38)
[2023-12-29] MEDS ORDERED: Ondansetron PF 4 MG/2 ML Vial ONE (06:38)
[2023-12-29] MEDS ORDERED: Rocuronium Bromide 10 MG/ML (10ML VIAL) ONE (06:38)
[2023-12-29] MEDS ORDERED: Lidocaine 1% PF 5 ML VIAL ONE (06:38)
[2023-12-29] MEDS ORDERED: Dexamethasone 20 MG/5 ML VIAL ONE (06:38)
[2023-12-29] MEDS ORDERED: Vancomycin 1 GM VIAL ONE (06:45)
[2023-12-29] MEDS ORDERED: Vancomycin HCl 500 MG VIAL ONE (06:46)
[2023-12-29 06:59] LABS: Anion Gap 15 mmol/L (10-20); BUN (Urea Nitrogen) 15 mg/dL (8.4-25.7); Calc. Creatinine Clearance 105 mL/min (70-130); Carbon Dioxide 24 mmol/L (23-31); Chloride 103 mmol/L (98-107); Estimated GFR 84; Glucose 166 mg/dL (80-115); Potassium 4.5 mmol/L (3.5-5.1); Sodium 137 mmol/L (136-145)
[2023-12-29] MEDS ORDERED: Sterile Water 10 ML ONE (07:10)
[2023-12-29] MEDS ORDERED: CEFAZOLIN 1 GM VIAL ONE (07:10)
[2023-12-29] MEDS ORDERED: PHENYLEPHRINE-NS 100 MCG/ML 10 ML SYRINGE ONE (07:15)
[2023-12-29] MEDS ORDERED: Dexmedetomidine 200 MCG/2 ML VIAL ONE (07:25)
[2023-12-29] MEDS ORDERED: ePHEDrine/0.9% NaCl/PF SYRINGE 50 mg/10 ml ONE (07:37)
[2023-12-29] MEDS: CEFAZOLIN 2 GM in Sodium Chloride 0.9% 100 ML IVPB SCH (14:29)
[2023-12-29] MEDS: hydrALAZINE 20 MG/ML VIAL SLOW IVP PRN (23:24)
[2023-12-30] MEDS: Ketorolac Tromethamine 30 MG (1 mL) VIAL IVP SCH ×2 (00:54→10:15)
[2023-12-30] MEDS: Lidocaine 4% Patch TD SCH (10:15)
[2023-12-30] MEDS: Acetaminophen 325 MG TAB PO PRN (15:19)
[2023-12-30] MEDS: tiZANidine HCl 4 MG TAB PO SCH (21:33)
[2023-12-30] MEDS: Transdermal Patch Removal TOP SCH (22:00)
[2023-12-31] MEDS: FLU VACC QS2023(65UP)/MF59C/PF 60 MCG/0.5 ML SYRINGE IM ONE (08:30)
[2023-12-31 08:37] VITALS: TEMP 98.5
[2023-12-31] MEDS: Ondansetron ODT 4 MG TAB PO PRN (09:58)
[2023-12-31] MEDS: Ondansetron PF 4 MG/2 ML Vial IVP PRN (10:09)
[2023-12-31] MEDS: Ketorolac Tromethamine 30 MG (1 mL) VIAL IVP SCH (10:37)
[2023-12-31 12:10] VITALS: BP 164/108
== END 2023-12-31 11:38 | disposition home or self-care (01) | DRG 33 ==
LOC: EDSTATUS 12:30 → SURG A 12-28 05:37 → CCU 12-28 12:06
PROVIDERS: ADMIT Surgery; ATTEND Surgery
PROC: 00160J6 Bypass Cerebral Ventricle to Peritoneal Cavity with Synthetic Substitute, Open Approach (ICD-10-PCS; principal; 2023-12-28)
PROC: 3E033XZ Introduction of Vasopressor into Peripheral Vein, Percutaneous Approach (ICD-10-PCS; 2023-12-28)
PROC: 00W60JZ Revision of Synthetic Substitute in Cerebral Ventricle, Open Approach (ICD-10-PCS; 2023-12-29)
DX: G91.2 (Idiopathic) normal pressure hydrocephalus (principal); I10 Essential (primary) hypertension; E10.9 Type 1 diabetes mellitus without complications; E03.9 Hypothyroidism, unspecified; K21.9 Gastro-esophageal reflux disease without esophagitis; Z98.890 Other specified postprocedural states; G20.A1 Parkinson's disease without dyskinesia, without mention of fluctuations
CPT/HCPCS: 36415; 36416; 70450; 71045; 80048; 85025; C1713; J0171; J0360; J0665; J0690; J1100; J1170; J1200; J1885; J2001; J2270; J2272; J2405; J2704; J3010; J3370; J3490; J7050; Q0162; Q0169

== ENCOUNTER 2025-09-16 10:00 | Outpatient (CLI) | payer MEDICARE | END 2025-09-16 10:01 | disposition home or self-care (01) | LOC: CT 10:00 | PROVIDERS: ATTEND Specialist | DX: M48.02 Spinal stenosis, cervical region (principal); M48.03 Spinal stenosis, cervicothoracic region | CPT/HCPCS: 72125 ==